=== PATIENT | female | born 1945 | race Caucasian/White ===

== ENCOUNTER → 2016-11-19 | Outpatient (CLI) | payer OTHER ==
[2016-10-25 21:44] VITALS: BP 106/65
== END ==
LOC: RAD 14:26
PROVIDERS: ATTEND Internal Medicine Cardiovascular Disease
DX: R55 Syncope and collapse (principal)
CPT/HCPCS: 93306

== ENCOUNTER → 2017-01-01 | Outpatient (CLI) | payer OTHER ==
[2016-10-25 21:44] VITALS: BP 106/65
[2017-01-01 12:45] LABS: BASOPHILS % (AUTO) 0.6 % (0.2-1.0); EOSINOPHILS # (AUTO) 0.2 x10^3/uL (0.0-0.2); EOSINOPHILS % (AUTO) 3.4 % (0.9-2.9); HEMATOCRIT 39.2 % (36.0-47.0); HEMOGLOBIN 13.5 g/dL (12.0-16.0); LYMPHOCYTES # (AUTO) 1.5 X10^3/uL (1.3-2.9); LYMPHOCYTES % (AUTO) 24.9 % (21.0-51.0); MEAN CORPUSCULAR HGB CONC 34.4 g/dL (33.0-35.0); MEAN CORPUSCULAR VOLUME 95.8 fL (80.0-100.0); MEAN PLATELET VOLUME 8.5 fL (7.4-11.0); MONOCYTES # (AUTO) 0.4 x10^3/uL (0.3-0.8); NEUTROPHILS # (AUTO) 3.9 x10^3/uL (2.2-4.8); NEUTROPHILS % (AUTO) 65.1 % (42.0-75.0); PLATELET COUNT 226 X10^3/uL (150.0-450.0); RED BLOOD COUNT 4.09 X10^6/uL (3.5-5.4); RED CELL DISTRIBUTION WIDTH 12.8 % (11.6-16.5)
[2017-01-01 13:11] LABS: ALANINE AMINOTRANSFERASE 25 Units/L (12-78); ALBUMIN 4.1 g/dL (3.4-5.0); ALKALINE PHOSPHATASE 137 Units/L (46-116); ASPARTATE AMINO TRANSFERASE 22 Units/L (15-37); BLOOD UREA NITROGEN 19 mg/dL (7-18); CALCIUM 9.3 mg/dL (8.5-10.1); CARBON DIOXIDE 26.6 mmol/L (21-32); CHLORIDE 105 mmol/L (98-107); CHOL/HDL RATIO 4.5 (0.0-5.0); CHOLESTEROL 206 mg/dL (0-200); CREATININE 0.85 mg/dL (0.55-1.02); FREE T4 (FREE THYROXINE) 0.93 ng/dL (0.76-1.46); GLUCOSE 97 mg/dL (65-99); HDL CHOLESTEROL 46 mg/dL (40-60); SODIUM 141 mmol/L (136-145); TRIGLYCERIDES 89 mg/dL (0-150); TSH (3RD GENERATION) 6.279 uIU/mL (0.358-3.74); eGFR BLACK RACES > 60 (>60); eGFR NON BLACK RACES > 60 (>60)
== END ==
LOC: LAB 11:50
PROVIDERS: ATTEND Nurse Practitioner Family
DX: Z09 Encounter for follow-up examination after completed treatment for conditions other than malignant neoplasm (principal); Z13.29 Encounter for screening for other suspected endocrine disorder; Z13.220 Encounter for screening for lipoid disorders; Z79.899 Other long term (current) drug therapy; E87.6 Hypokalemia
CPT/HCPCS: 36415; 80053; 80061; 84439; 84443; 85025

== ENCOUNTER → 2017-03-20 | Outpatient (CLI) | payer OTHER ==
[2016-10-25 21:44] VITALS: BP 106/65
--- NOTE | 2017-03-20 10:12 | US ---
History: Right upper quadrant pain Study: Ultrasound of the right upper quadrant of the abdomen Findings: The gallbladder is normal in size without wall thickening or stone or sludge. The common h epatic duct measures 5.8 millimeters diameter. There is fatty infiltration of the liver. The pancrea s is unremarkable. The right kidney is normal in size without hydronephrosis. There is no free fluid . Impression: No acute disease Reported By:
== END ==
LOC: RAD 09:11
PROVIDERS: ATTEND Nurse Practitioner Family
DX: K90.49 Malabsorption due to intolerance, not elsewhere classified (principal); R10.11 Right upper quadrant pain
CPT/HCPCS: 76705

== ENCOUNTER → 2017-03-25 | Outpatient (CLI) | payer OTHER ==
[2016-10-25 21:44] VITALS: BP 106/65
--- NOTE | 2017-03-25 13:07 | NM ---
HIDA SCAN WITH EJECTION FRACTION. HISTORY: Malabsorption and right upper quadrant pain Comparison: None Technique: Multiple scintigraphic images of the abdomen were obtained the intravenous administration of dose mCi of technetium labeled Choletec. Following distention of the gallbladder with radiotracer a slow intravenous infusion of dose microgr ams of Kinevac was performed. An estimated gallbladder ejection fraction was calculated. Findings: Homogeneous uptake of radiotracer is seen throughout the liver. The intrabiliary ductal system is o bserved normally. The common hepatic and common bile duct appear unremarkable with normal biliary-b owel transit. The gallbladder is observed to fill normally. A normal gallbladder ejection fraction of 5% (normal > 35%) is observed. IMPRESSION: 1. Normal hepatobiliary imaging scan. 2. Decreased gallbladder ejection fraction of 5%. This may represent chronic cholecystitis in the [facility] clinical setting. Reported By:
== END ==
LOC: RAD 09:15
PROVIDERS: ATTEND Nurse Practitioner Family
DX: K90.49 Malabsorption due to intolerance, not elsewhere classified (principal); R10.11 Right upper quadrant pain
CPT/HCPCS: 78227

== ENCOUNTER 2017-03-30 09:59 | Day surgery (SDC) | payer OTHER ==
[2017-03-30] MEDS ORDERED: ANCEF VIAL 1 GM ONE ×2 (10:39→11:40)
[2017-03-30] MEDS ORDERED: LR 1000 ML IV 1,000 ML IV ONE (10:39)
[2017-03-30] MEDS ORDERED: NS 50 ML IV + SPIKE MINIBAG* 50 ML IV ONE (10:39)
[2017-03-30 10:40] LABS: BASOPHILS % (AUTO) 0.4 % (0.2-1.0); EOSINOPHILS # (AUTO) 0.2 x10^3/uL (0.0-0.2); HEMATOCRIT 38.8 % (36.0-47.0); HEMOGLOBIN 13.5 g/dL (12.0-16.0); LYMPHOCYTES # (AUTO) 1.4 X10^3/uL (1.3-2.9); LYMPHOCYTES % (AUTO) 25.7 % (21.0-51.0); MEAN CORPUSCULAR HEMOGLOBIN 33.5 pg (27.0-34.0); MEAN CORPUSCULAR HGB CONC 34.7 g/dL (33.0-35.0); MEAN CORPUSCULAR VOLUME 96.5 fL (80.0-100.0); MEAN PLATELET VOLUME 8.2 fL (7.4-11.0); MONOCYTES # (AUTO) 0.4 x10^3/uL (0.3-0.8); MONOCYTES % (AUTO) 6.6 % (0.0-13.0); NEUTROPHILS # (AUTO) 3.5 x10^3/uL (2.2-4.8); NEUTROPHILS % (AUTO) 64.3 % (42.0-75.0); PLATELET COUNT 207 X10^3/uL (150.0-450.0); RED BLOOD COUNT 4.02 X10^6/uL (3.5-5.4); RED CELL DISTRIBUTION WIDTH 13.1 % (11.6-16.5); WHITE BLOOD COUNT 5.4 X10^3/uL (3.6-10.0)
[2017-03-30 10:42] LABS: BLOOD UREA NITROGEN 21 mg/dL (7-18); CHLORIDE 107 mmol/L (98-107); CREATININE 0.85 mg/dL (0.55-1.02); GLUCOSE 104 mg/dL (65-99); SODIUM 140 mmol/L (136-145); eGFR BLACK RACES > 60 (>60); eGFR NON BLACK RACES > 60 (>60)
[2017-03-30] MEDS ORDERED: FENTANYL INJ 250 mcg ONE (10:52)
[2017-03-30] MEDS ORDERED: XYLOCAINE-MPF 1% ONE (11:27)
[2017-03-30] MEDS ORDERED: MARCAINE 0.25% WITH EPI IJ ONE (11:27)
[2017-03-30] MEDS ORDERED: NS IRRIGATION 1000 ML 3,000 ML IR ONE (12:20)
[2017-03-30] MEDS ORDERED: BENADRYL INJ 50 MG VIAL IVP PRN (12:56)
[2017-03-30] MEDS ORDERED: DILAUDID INJ IVP PRN (12:56)
[2017-03-30] MEDS ORDERED: REGLAN INJ 10 MG VIAL IVP PRN (12:56)
[2017-03-30] MEDS ORDERED: ZOFRAN INJ 4 MG VIAL IVP PRN (12:56)
[2017-03-30] MEDS ORDERED: PHENERGAN INJ 25 MG IVP PRN (12:56)
[2017-03-30] MEDS ORDERED: DILAUDID INJ ONE (13:06)
[2017-03-30] MEDS ORDERED: TORADOL 30 MG VIAL ONE (13:49)
[2017-03-30] MEDS ORDERED: ZOFRAN INJ 4 MG VIAL ONE ×2 (14:06→15:49)
[2017-03-30] MEDS ORDERED: NS 1000 ML 1,000 ML ONE (14:19)
[2017-03-30] MEDS ORDERED: ROBINUL ONE (15:49)
[2017-03-30] MEDS ORDERED: NORCURON INJ 10 MG VIAL ONE (15:49)
[2017-03-30] MEDS ORDERED: SUPRANE IN ONE (15:49)
[2017-03-30] MEDS ORDERED: XYLOCAINE 2 % (PLAIN) ONE (15:49)
[2017-03-30] MEDS ORDERED: QUELICIN (OR ANECTINE) ONE (15:49)
[2017-03-30] MEDS ORDERED: NEOSTIGMINE INJ ONE (15:49)
[2017-03-30] MEDS ORDERED: DIPRIVAN VIAL ONE (15:49)
[2017-03-30] MEDS ORDERED: VERSED ONE (15:49)
[2017-03-30 16:04] VITALS: BP 127/68
== END 2017-03-30 15:57 | disposition home or self-care (01) | DRG 419 ==
LOC: SURG1 09:59
PROVIDERS: ATTEND Student in an Organized Health Care Education/Training Program
PROC: 0FT44ZZ Resection of Gallbladder, Percutaneous Endoscopic Approach (ICD-10-PCS; principal; 2017-03-30 11:30)
DX: K82.8 Other specified diseases of gallbladder (principal); K82.4 Cholesterolosis of gallbladder
CPT/HCPCS: 36415; 80048; 85025; A4216; A4222; S0020; J0330; J0690; J1170; J1885; J2001; J2250; J2405; J2710; J3010; J3490; J7120

== ENCOUNTER → 2017-06-18 | Outpatient (CLI) | payer OTHER ==
--- NOTE | 2017-06-18 14:18 | MG ---
HISTORY: Left breast carcinoma status post mastectomy Bilateral digital diagnostic mammography with CAD. Comparison: June 12, 2016 and June 12, 2015 FINDINGS: Bilateral CC and MLO projections of the right and left breast were obtained. Scattered fibroglandula r tissue is seen to be present without significant interval change. No suspicious architectural dist ortion, mass or clustered microcalcifications can be observed to suggest malignancy. No skin thicken ing or nipple retraction is appreciated. No pathological lymphadenopathy can be identified. Benign- appearing calcifications are noted within the right and left breast. There are stable postsurgical ch anges on the left. IMPRESSION: NO RADIOGRAPHIC EVIDENCE OF MALIGNANCY. ACR CATEGORY 2 - benign findings. FOLLOW-UP EXAM 1 YEAR. Diagnostic CAD was utilized and reviewed. * 0 (ZERO) - ASSESSMENT INCOMPLETE; ADDITIONAL IMAGING IS NEEDED. * 1/1 (ONE) - NEGATIVE. * 2/II (TWO) - BENIGN FINDINGS. * 3/III (THREE) - PROBABLY BENIGN FINDING; SHORT INTERVAL FOLLOW-UP SUGGESTED. * 4/IV (FOUR) - SUSPICIOUS ABNORMALITY; BIOPSY SHOULD BE CONSIDERED. * 5/V - HIGHLY SUSPICIOUS OF MALIGNANCY; BIOPSY SHOULD BE PERFORMED. A NEGATIVE X-RAY REPORT SHOULD NOT DELAY BIOPSY IF A DOMINANT OR CLINICALLY SUSPICIOUS MASS IS PRESENT; 4 TO 8 PERCENT OF CANCERS ARE NOT IDENTIFIED BY X-RAY. A NEGA TIVE REPORT MAY REINFORCE THE CLINICAL IMPRESSION. ADENOSIS AND DENSE BREASTS MAY OBSCURE AN UNDERLY ING NEOPLASM. Reported By:
== END | disposition home or self-care (01) ==
LOC: RAD 13:12
PROVIDERS: ATTEND Specialist
DX: Z85.3 Personal history of malignant neoplasm of breast (principal); Z90.12 Acquired absence of left breast and nipple
CPT/HCPCS: 77065

== ENCOUNTER 2018-01-07 07:21 | Day surgery (SDC) | payer OTHER ==
[2018-01-07] MEDS ORDERED: D5 LR 1000 ML 1,000 ML IV ONE (07:28)
[2018-01-07] MEDS ORDERED: DIPRIVAN VIAL 20 ML ONE (08:17)
[2018-01-07 09:22] VITALS: BP 110/70
== END 2018-01-07 09:20 | disposition home or self-care (01) ==
LOC: SURG1 07:21
PROVIDERS: ATTEND Internal Medicine Gastroenterology
PROC: 0DBP8ZX Excision of Rectum, Via Natural or Artificial Opening Endoscopic, Diagnostic (ICD-10-PCS; principal; 2018-01-07 07:30)
PROC: 0DBN8ZX Excision of Sigmoid Colon, Via Natural or Artificial Opening Endoscopic, Diagnostic (ICD-10-PCS; principal; 2018-01-07 07:30)
PROC: 0DJD8ZZ Inspection of Lower Intestinal Tract, Via Natural or Artificial Opening Endoscopic (ICD-10-PCS; principal; 2018-01-07 07:30)
PROC: 0DBE8ZX Excision of Large Intestine, Via Natural or Artificial Opening Endoscopic, Diagnostic (ICD-10-PCS; principal; 2018-01-07 07:30)
PROC: 0DBL8ZX Excision of Transverse Colon, Via Natural or Artificial Opening Endoscopic, Diagnostic (ICD-10-PCS; principal; 2018-01-07 07:30)
DX: Z12.11 Encounter for screening for malignant neoplasm of colon (principal); R19.4 Change in bowel habit; Z86.010 Personal history of colon polyps; K64.0 First degree hemorrhoids; K57.30 Diverticulosis of large intestine without perforation or abscess without bleeding; K63.5 Polyp of colon; D12.3 Benign neoplasm of transverse colon; D12.8 Benign neoplasm of rectum
CPT/HCPCS: 99100; A4217; J3490; J7120

== ENCOUNTER 2020-10-05 17:11 | Inpatient (IN) ==
--- NOTE | 2020-10-05 17:55 | DR.DIZZY ---
HPI Time seen Time Seen by Provider: 10/05/20 17:55 PCP Primary Care Physician: Mark HPI Comment HPI Comment: PATIENT IS 74YR OLD FEMALE IN ER VIA EMS WITH INCREASING DENERALIZED WEAKNESS TIMES ONE WEEK. WORSE TODAY. NAUSEA AND VOMITING WITH ABDOMINAL DISCOMFORT ON AND OFF REPORTED. Complaint Chief Complaint Doctor Comments: INCREASING GENERALIZED WEAKNESS TIMES ONE WEEK. Chief Complaint:: Weakness COVID-19 Coronavirus risk:travel/contact w/high risk person: No Has patient experienced Coronavirus symptoms: Yes Coronavirus symptoms experienced: Fever Source History Provided: Patient and EMS Mode of Arrival Mode of Arrival: EMS Timing Onset of Chief Complaint: 09/28/20 Came on: Suddenly Duration Duration: Constant Duration: Days Location of Weakness Weakness Location: Generalized Context Onset: At rest History of: None Stroke Symptoms: Dizziness Severity Severity: Abnormal activity level Modifying factors Worsens: Other (EXERTION.) Associated signs and symptoms Associated Signs and Symptoms: Weak, Nausea and Vomiting PMH PMH Past Medical History: Yes Past Medical History: Hypertension Past Medical History Comment: Left breast CA Past Surgical History: Yes Surgical History: Mastectomy Family History History of Family Medical Conditions: Yes Family Medical History: Hypertension Social History Does patient currently use any type of tobacco product: No Have you used tobacco products in the last 12 months: No Type of Tobacco Use: None Does any household member use tobacco: No Alcohol Use: None Do you use any recreational Drugs:: No Lives With: Spouse Lives Where: Home Travel Risk Coronavirus risk:travel/contact w/high risk person: No Has patient experienced Coronavirus symptoms: Yes Coronavirus symptoms experienced: Fever Infectious screening In the last 2 months have you had wt loss of >10#?: NO Have you had fever, night sweats or hemotysis?: No Have you traveled outside the country in the last 6 months?: No Isolation: Standard ROS Review of Systems Constitutional: See HPI, Weakness and Fatigue; negative Fever Eyes: No Symptoms Reported ENTM: No Symptoms Reported and See HPI; negative Nose Discharge and Nose Congestion Respiratoy: No Symptoms Reported and See HPI; negative Moist Cough, Short of Breath and Wheezing Cardiovascular: See HPI and Palpitations Gastrointestinal/Abdominal: See HPI, Abdominal Pain and Nausea; negative D iarrhea and Vomiting Genitourinary: No Symptoms Reported and See HPI; negative Dysuria Neurological: See HPI, Weakness and Dizziness Musculoskeletal: No Symptoms Reported and See HPI Integumentary: No Symptoms Reported and See HPI; negative Change in Color, Rash and Juandice Hematologic/Lymphatic: See HPI and Easy Bruising Endocrine: No Symptoms Reported and See HPI; negative Increased Thirst and Increased Urine Psychiatric: No Symptoms Reported and See HPI All Other Systems: Reviewed and Negative PE Vital Signs Vitals: Temperature 98.1 F Pulse Rate [Bilateral Radial] 95 Pulse Rate 107 Respiratory Rate 20 Blood Pressure [Right Arm] 130/68 Blood Pressure [Right Calf] 111/60 Blood Pressure [Standing] 128/83 Blood Pressure [Sitting] 140/90 Blood Pressure [Lying] 118/75 Blood Pressure 137/68 O2 Sat by Pulse Oximetry 93 General Limitations: No Limitations General Appearance: Alert and In Distress Head Head Exam: Normal Inspection and Atraumatic Eyes Eye exam: Normal Appearance and PERRL; negative Scleral Icterus and Conjunctival Injection Pupils: Regular, Round: Bilateral and Reactive: Bilateral Sclera/Conjunctival: Normal Inspection: Bilateral ENT ENT Exam: Normal Exam, Normal Oropharynx, Normal External Ear Exam and TM's Normal Bilaterally Neck Neck Exam: Normal Inspection, Trachea Midline and Tenderness; negative Lymphadenopathy Chest Chest Inspection: Normal Inspection and Symmetric Chest Wall Rise; negative Tenderness Respiratory Respiratory Exam: Normal Lung Sounds Bilat; negative Accessory Muscle Use, Chest Wall Tenderness and Respiratory Distress Respiratory Exam: Bilateral: Rhonchi and Lower: Rhonchi Cardiovascular Cardiovascular Exam: Tachycardia and Normal Heart Sounds; negative Systolic Murmur and Diastolic Murmur Abdominal Exam Abdominal Exam: Normal Inspection, Normal Bowel Sounds and Soft; negative Tenderness Rectal Rectal Exam: Deferred Extremeties Extremities Exam: Normal Inspection and Normal Capillary Refill; negative Tende rness and Calf Tenderness Back Back Exam: Normal Inspection; negative (R) CVA Tenderness and (L) CVA Tenderness Neurologic Neurological Exam: Alert and Oriented X3; negative Motor Sensory Deficit Cranial Nerve Exam: EOM Function (II, III, IV, ): Normal, Facial Sensation (V): Normal, Gag reflex (XI): Normal and Tongue Deviation: Normal Motor Strength - LUE: 5/5 Motor Strength - RUE: 5/5 Motor Strength - LLE: 5/5 Motor Strength - RLE: 5/5 Upper Motor Neuron Exam: Babinski Sign: Normal Psychiatric Psychiatric Exam: Normal Affect and Normal Mood Skin Skin Exam: Dry MDM Differential Diagnosis Differential Diagnosis: Dehydration, Dysrhythmia, Electrolyte disorder, Hypoglycemia and Myocardial infarction Differential Diagnosis Comment: PNEUMONIA, UTI COURSE Treatment Treatment: SEE ORDERS. NS 1L IV BOLUS. Consultation Consultation Comments: DISCUSSED PATIENT WITH DR. JERNIGAN, HE WILL ADMIT PATIENT. Education/Counseling Education/Counseling: Patient Educated On: Diagnosis and Needs for Follow Up ROR Labs Reviewed Laboratory Results Reviewed?: Yes Result Diagrams: 10/15/20 06:12 10/15/20 11:30 Laboratory: 10/07/20 11:34 Blood Blood Culture - Final 10/07/20 11:26 Blood Blood Culture - Final 10/07/20 12:50 Stool Stool Culture - Final 10/07/20 12:50 Stool - Final WBC 2.8 X10^3/uL (3.6-10.0) L 10/08/20 05:26 RBC 2.85 X10^6/uL (3.5-5.4) L 10/08/20 05:26 Hgb 10.3 g/dL (12.0-16.0) L 10/08/20 05:26 Hct 28.7 % (36.0-47.0) L 10/08/20 05:26 MCV 100.6 fL (80.0-100.0) H 10/08/20 05:26 MCH 36.1 pg (27.0-34.0) H 10/08/20 05:26 MCHC 35.9 g/dL (33.0-35.0) H 10/08/20 05:26 RDW 19.3 % (11.6-16.5) H 10/08/20 05:26 Plt Count 139 X10^3/uL (150.0-450.0) L 10/08/20 05:26 Plt Count Comment Decreased (ADEQUATE) A 10/08/20 05:26 MPV 8.8 fL (7.4-11.0) 10/08/20 05:26 Neut % (Auto) 89.2 % (42.0-75.0) H 10/08/20 05:26 Lymph % (Auto) 8.2 % (21.0-51.0) L 10/08/20 05:26 [place] % (Auto) 1.5 % (0.0-13.0) 10/08/20 05:26 Eos % (Auto) 0.2 % (0.9-2.9) L 10/08/20 05:26 Baso % (Auto) 0.9 % (0.2-1.0) 10/08/20 05:26 Neut # (Auto) 2.5 x10^3/uL (2.2-4.8) 10/08/20 05:26 Lymph # (Auto) 0.2 X10^3/uL (1.3-2.9) L 10/08/20 05:26 [place] # (Auto) 0 x10^3/uL (0.3-0.8) L 10/08/20 05:26 Eos # (Auto) 0.0 x10^3/uL (0.0-0.2) 10/08/20 05:26 Baso # (Auto) 0.0 X10^3/uL (0.0-0.1) 10/08/20 05:26 Absolute Nucleated RBC 0.3 /100WBC 10/08/20 05:26 Total Counted 100 10/08/20 05:26 Neutrophils % (Manual) 87 % (39-76) H 10/08/20 05:26 Band Neutrophils % 1 % (0-10) 10/06/20 05:20 Lymphocytes % (Manual) 11 % (13-43) L 10/08/20 05:26 Monocytes % (Manual) 1 % (4-9) L 10/08/20 05:26 Eosinophils % (Manual) 1 % (0-6) 10/08/20 05:26 Plt Morphology Comment Normal (NORMAL) 10/08/20 05:26 RBC Morphology Normal (NORMAL) 10/08/20 05:26 Sodium 137 mmol/L (136-145) 10/08/20 05:26 Corrected Sodium 138 mmol/L (136-145) 10/08/20 05:26 Potassium 2.9 mmol/L (3.5-5.1) L* 10/08/20 05:26 Chloride 105 mmol/L (98-107) 10/08/20 05:26 Carbon Dioxide 21.3 mmol/L (21-32) 10/08/20 05:26 BUN 6 mg/dL (7-18) L 10/08/20 05:26 Creatinine 0.68 mg/dL (0.55-1.02) 10/08/20 05:26 Est GFR (MDRD) Af Amer > 60 (>60) 10/08/20 05:26 Est GFR (MDRD) Non-Af > 60 (>60) 10/08/20 05:26 Glucose 142 mg/dL (65-99) H 10/08/20 05:26 Calcium 6.7 mg/dL (8.5-10.1) L 10/08/20 05:26 Corrected Calcium 8.3 mg/dL (8.5-10.1) L 10/08/20 05:26 Magnesium 1.7 mg/dL (1.7-2.9) 10/08/20 05:26 Total Bilirubin 0.50 mg/dL (0.2-1.0) 10/08/20 05:26 AST 22 Units/L (15-37) 10/08/20 05:26 ALT 20 Units/L (12-78) 10/08/20 05:26 Alkaline Phosphatase 106 Units/L (46-116) 10/08/20 05:26 Creatine Kinase 41 Units/L (26-192) 10/05/20 18:34 CK-MB (CK-2) < 1.0 ng/mL (0-4.0) 10/05/20 18:34 CK/CKMB % Calc 2.4 % (<4) 10/05/20 18:34 Troponin I < 0.02 ng/mL (0-1.5) 10/05/20 18:34 Total Protein 5.4 g/dL (6.4-8.2) L 10/08/20 05:26 Albumin 2.0 g/dL (3.4-5.0) L 10/08/20 05:26 Globulin 3.4 g/dL (2.5-4.5) 10/08/20 05:26 Albumin/Globulin Ratio 0.6 Ratio (1.1-2.1) L 10/08/20 05:26 Amylase 76 Units/L (25-115) 10/06/20 05:20 Lipase 180 Units/L (73-393) 10/05/20 18:34 Specimen Type Clean catch urine 10/07/20 05:35 Urine Color Yellow (YELLOW) 10/07/20 05:35 Urine Appearance Clear (CLEAR) 10/07/20 05:35 Urine pH 5.0 (5.0 - 8.0) 10/07/20 05:35 Ur Specific [place] 1.015 (1.000-1.030) 10/07/20 05:35 Urine Protein 1+ (NEGATIVE) 10/07/20 05:35 Urine Glucose (UA) Negative (NEGATIVE) 10/07/20 05:35 Urine Ketones 3+ (NEGATIVE) 10/07/20 05:35 Urine Occult Blood 1+ (NEGATIVE) 10/07/20 05:35 Urine Nitrite Negative (NEGATIVE) 10/07/20 05:35 Urine Bilirubin Negative (NEGATIVE) 10/07/20 05:35 Urine Urobilinogen Normal (NORMAL) 10/07/20 05:35 Ur Leukocyte Esterase Negative (NEGATIVE) 10/07/20 05:35 Urine RBC 0-2 /HPF (0-3) 10/07/20 05:35 Urine WBC 0-2 /HPF (0-5) 10/07/20 05:35 Ur Squamous Epith Cells Rare /HPF (NEGATIVE) 10/07/20 05:35 Urine Bacteria Negative /HPF (NEGATIVE) 10/07/20 05:35 Ur Culture Indicated? No/not indicated 10/07/20 05:35 Stool for White Cells Negative (NEGATIVE) 10/07/20 12:50 Stl C. diff Tox B Gene Negative (NEGATIVE) 10/07/20 12:50 Stl C. diff [id number] Negative (NEGATIVE) 10/07/20 12:50 SARS-CoV-2 (PCR) Negative (NEGATIVE) 10/05/20 23:23 Influenza Type A (PCR) Negative (NEGATIVE) 10/05/20 23:23 Influenza Type B (PCR) Negative (NEGATIVE) 10/05/20 23:23 RSV (PCR) Negative (NEGATIVE) 10/05/20 23:23 XRAY XRAY Interpreted by: Radiologist (REPORT NOTED.) EKG Rate: 100 [place]: Normal Rhythm: NSR Block: None Hypertrophy: None ST: Old, Ant, Infarct and Nonsp Opioid Opioid Risk Tool Age (Marvin box if 16-45): No History of Preadolescent Sexual Abuse: No Total: 0 Total Score Risk Category: Low Risk Copyright: [facility] predicting aberrant behaviors Diagnosis Discharge Problem: Weakness, Acute dehydration Abdominal pain Qualifiers: Abdominal location: generalized Qualified Code(s): R10.84 - Generalized abdominal pain Vomiting Qualifiers: Vomiting type: unspecified Vomiting Intractability: non-intractable Nausea presence: with nausea Qualified Code(s): R11.2 - Nausea with vomiting, unspecified Instructions Instructions: Fall Prevention in the Home, Adult, Xysg-oj-Cuaj Hypokalemia Dehydration, Adult, Npzl-dy-Cwfb Home Oxygen Use, Adult Hand Washing, Mess-ol-Vzpy Weakness, Mvjl-xt-Fvjp How to Use a Nebulizer, Adult Diarrhea, Adult, Ltwi-et-Pifb Forms: Excuse From Work or School Precautions for COVID19 Patient Portal Social Distancing
[2020-10-05] MEDS ORDERED: NS 1000 ML 1,000 ML IV ONE (18:10)
[2020-10-05] MEDS ORDERED: NS 1000 ML 1,000 ML ONE (18:15)
--- NOTE | 2020-10-05 18:26 | RAD ---
HISTORYWeaknessSTUDYCHEST, 1 VIEWCOMPARISONNone.FINDINGSThe trachea is midline. The cardiac silhouette is at the upper limits of normal in size. There is a right-sided Loorgz-S-Jgjd with tip projecting over the distal SVC. Mild interstitial prominence is noted throughout both lungs without dense consolidation, pleural effusion or pneumothorax. Surgical clips project over the left chest and axillary region. The bony thorax is grossly unremarkable.IMPRESSIONMild nonspecific interstitial changes of the lungs without focal consolidation or pleural effusion.Electronically signed by: ABDULKADIR KIDD (Oct 05, 2020 18:25:07)
[2020-10-05 18:51] LABS: BASOPHILS % (AUTO) 0.7 % (0.2-1.0); EOSINOPHILS % (AUTO) 0.2 % (0.9-2.9); HEMOGLOBIN 11.1 g/dL (12.0-16.0); LYMPHOCYTES # (AUTO) 0.2 X10^3/uL (1.3-2.9); MEAN CORPUSCULAR HEMOGLOBIN 35.5 pg (27.0-34.0); MEAN CORPUSCULAR HGB CONC 34.7 g/dL (33.0-35.0); MEAN CORPUSCULAR VOLUME 102.5 fL (80.0-100.0); MONOCYTES # (AUTO) 0 x10^3/uL (0.3-0.8); MONOCYTES % (AUTO) 0.6 % (0.0-13.0); NEUTROPHILS # (AUTO) 3.1 x10^3/uL (2.2-4.8); NEUTROPHILS % (AUTO) 91.5 % (42.0-75.0); PLATELET COUNT 117 X10^3/uL (150.0-450.0); RED BLOOD COUNT 3.12 X10^6/uL (3.5-5.4); RED CELL DISTRIBUTION WIDTH 19.7 % (11.6-16.5); WHITE BLOOD COUNT 3.4 X10^3/uL (3.6-10.0)
[2020-10-05 18:55] LABS: AMYLASE 69 Units/L (25-115); LIPASE 180 Units/L (73-393)
[2020-10-05 19:43] LABS: PLATELET MORPHOLOGY COMMENT NORMAL (NORMAL)
[2020-10-05 19:58] LABS: BLOOD UREA NITROGEN 15 mg/dL (7-18); CALCIUM 7.5 mg/dL (8.5-10.1); CARBON DIOXIDE 24.1 mmol/L (21-32); CHLORIDE 105 mmol/L (98-107); CREATININE 0.57 mg/dL (0.55-1.02); SODIUM 139 mmol/L (136-145); TROPONIN I < 0.02 ng/mL (0-1.5); eGFR NON BLACK RACES > 60 (>60)
[2020-10-05 20:02] LABS: ALANINE AMINOTRANSFERASE 18 Units/L (12-78); ALBUMIN 2.3 g/dL (3.4-5.0); ALKALINE PHOSPHATASE 109 Units/L (46-116); ASPARTATE AMINO TRANSFERASE 27 Units/L (15-37); CKMB % 2.4 % (<4); COR CA(FOR HYPOALB) 8.9 mg/dL (8.5-10.1); CREATINE KINASE 41 Units/L (26-192); CREATINE KINASE MB < 1.0 ng/mL (0-4.0); TOTAL PROTEIN 5.2 g/dL (6.4-8.2)
[2020-10-05] MEDS ORDERED: ZOFRAN INJ 4 MG VIAL IVP PRN (23:07)
[2020-10-05] MEDS ORDERED: MORPHINE SULFATE INJ 2 MG INJ IVP PRN (23:07)
[2020-10-05] MEDS ORDERED: PEPCID 20 MG IV PREMIX* 20 MG/50 ML BAG IV PRN (23:07)
[2020-10-06] MEDS ORDERED: NS 1000 ML 1,000 ML ONE ×2 (01:11→11:36)
[2020-10-06] MEDS: NS 1000 ML 1,000 ML IV SCH ×2 (01:36→11:36)
[2020-10-06 06:32] LABS: BASOPHILS % (AUTO) 0.4 % (0.2-1.0); EOSINOPHILS % (AUTO) 0.2 % (0.9-2.9); HEMOGLOBIN 10.8 g/dL (12.0-16.0); LYMPHOCYTES # (AUTO) 0.3 X10^3/uL (1.3-2.9); LYMPHOCYTES % (AUTO) 7.1 % (21.0-51.0); MEAN CORPUSCULAR HEMOGLOBIN 35.8 pg (27.0-34.0); MEAN CORPUSCULAR HGB CONC 34.9 g/dL (33.0-35.0); MEAN CORPUSCULAR VOLUME 102.4 fL (80.0-100.0); MEAN PLATELET VOLUME 8.5 fL (7.4-11.0); MONOCYTES # (AUTO) 0 x10^3/uL (0.3-0.8); MONOCYTES % (AUTO) 1.1 % (0.0-13.0); NEUTROPHILS # (AUTO) 3.5 x10^3/uL (2.2-4.8); NEUTROPHILS % (AUTO) 91.2 % (42.0-75.0); PLATELET COUNT 128 X10^3/uL (150.0-450.0); RED BLOOD COUNT 3.03 X10^6/uL (3.5-5.4); RED CELL DISTRIBUTION WIDTH 19.7 % (11.6-16.5); WHITE BLOOD COUNT 3.9 X10^3/uL (3.6-10.0)
[2020-10-06 06:41] LABS: BLOOD UREA NITROGEN 11 mg/dL (7-18); CALCIUM 7.2 mg/dL (8.5-10.1); CHLORIDE 103 mmol/L (98-107); CREATININE 0.64 mg/dL (0.55-1.02); SODIUM 137 mmol/L (136-145); eGFR NON BLACK RACES > 60 (>60)
[2020-10-06 07:23] LABS: BAND NEUTROPHILS % 1 % (0-10)
[2020-10-06 07:24] LABS: PLATELET MORPHOLOGY COMMENT NORMAL (NORMAL)
[2020-10-06] MEDS ORDERED: POTASSIUM CHL 40 MEQ/NS 0.45% 500 ML IV ONE (09:24)
--- NOTE | 2020-10-06 11:40 | DR.H&P ---
H&P History & Physical for Day of: H&P Date: 10/06/20 Chief Complaint Chief Complaint: weakness, diarrhea Allergies Allergies Allergy/AdvReac Type Severity Reaction Status Date / Time codeine Allergy Verified 06/05/20 09:23 History of Present Illness History of Present Illness: Ms. Lozada is a 74y/o female with a PMH of breast cancer s/p left sided mastectomy with recent metastasis to cervical region. Patient had a cervical fracture and is currently wearing a C-collar. She was started on Ibrance 2 months ago and since then she has been weak, having diarrhea and sleeping most of the day. She was seen in the Ed on 10/01 for similar complaints and was hydrated and sent home. Patient continues to be weak with poor appetite , decreased energy and diarrhea 3-4 times a day. Patient denies fever or chills, no cough or SOB. Denies abdominal pain. Denies blood in stool. Labs: - WBC 3.9 Hgb 10.8 Plt 128 K:3.1 BUN/Cr: 11/0.64 CXR: mild interstitial changes, no consolidation/infiltrate noted She was started on IVF, Zofran, Pepcid and pain control. Plan: will continue hydration with NS, replace potassium. Check stool studies for C diff, stool culture. Resume home medications. Check Mag. Check urinalysis. Start clear liquid diet and advance as tolerated. Monitor AM labs. Patient's symptoms likely 2/2 to chemo medication. Past Medical History Past Medical History: Hypertension and Hyperthyroidism Additional Medical History: Breast cancer Past Surgical History Surgical History: Mastectomy Family History Family Medical History: Hypertension Social History Does patient currently use any type of tobacco product: No Have you used tobacco products in the last 12 months: No Type of Tobacco Use: None Does any household member use tobacco: No Alcohol Use: None Prescription drug monitoring program results: PDMP reviewed and no concerns identified Medications Home Medications: codeine Allergy (Verified 06/05/20 09:23) Labs Result Diagrams: 10/06/20 05:20 10/06/20 05:20 Labs: Laboratory WBC 3.9 X10^3/uL (3.6-10.0) 10/06/20 05:20 RBC 3.03 X10^6/uL (3.5-5.4) L 10/06/20 05:20 Hgb 10.8 g/dL (12.0-16.0) L 10/06/20 05:20 Hct 31.0 % (36.0-47.0) L 10/06/20 05:20 MCV 102.4 fL (80.0-100.0) H 10/06/20 05:20 MCH 35.8 pg (27.0-34.0) H 10/06/20 05:20 MCHC 34.9 g/dL (33.0-35.0) 10/06/20 05:20 RDW 19.7 % (11.6-16.5) H 10/06/20 05:20 Plt Count 128 X10^3/uL (150.0-450.0) L 10/06/20 05:20 Plt Count Comment Decreased (ADEQUATE) A 10/06/20 05:20 MPV 8.5 fL (7.4-11.0) 10/06/20 05:20 Neut % (Auto) 91.2 % (42.0-75.0) H 10/06/20 05:20 Lymph % (Auto) 7.1 % (21.0-51.0) L 10/06/20 05:20 [place] % (Auto) 1.1 % (0.0-13.0) 10/06/20 05:20 Eos % (Auto) 0.2 % (0.9-2.9) L 10/06/20 05:20 Baso % (Auto) 0.4 % (0.2-1.0) 10/06/20 05:20 Neut # (Auto) 3.5 x10^3/uL (2.2-4.8) 10/06/20 05:20 Lymph # (Auto) 0.3 X10^3/uL (1.3-2.9) L 10/06/20 05:20 [place] # (Auto) 0 x10^3/uL (0.3-0.8) L 10/06/20 05:20 Eos # (Auto) 0.0 x10^3/uL (0.0-0.2) 10/06/20 05:20 Baso # (Auto) 0.0 X10^3/uL (0.0-0.1) 10/06/20 05:20 Absolute Nucleated RBC 0.1 /100WBC 10/06/20 05:20 Total Counted 100 10/06/20 05:20 Neutrophils % (Manual) 89 % (39-76) H 10/06/20 05:20 Band Neutrophils % 1 % (0-10) 10/06/20 05:20 Lymphocytes % (Manual) 8 % (13-43) L 10/06/20 05:20 Monocytes % (Manual) 2 % (4-9) L 10/06/20 05:20 Plt Morphology Comment Normal (NORMAL) 10/06/20 05:20 RBC Morphology Normal (NORMAL) 10/06/20 05:20 Sodium 137 mmol/L (136-145) 10/06/20 05:20 Corrected Sodium TNP 10/06/20 05:20 Potassium 3.1 mmol/L (3.5-5.1) L 10/06/20 05:20 Chloride 103 mmol/L (98-107) 10/06/20 05:20 Carbon Dioxide 24.0 mmol/L (21-32) 10/06/20 05:20 BUN 11 mg/dL (7-18) 10/06/20 05:20 Creatinine 0.64 mg/dL (0.55-1.02) 10/06/20 05:20 Est GFR (MDRD) Af Amer > 60 (>60) 10/06/20 05:20 Est GFR (MDRD) Non-Af > 60 (>60) 10/06/20 05:20 Glucose 97 mg/dL (65-99) 10/06/20 05:20 Calcium 7.2 mg/dL (8.5-10.1) L 10/06/20 05:20 Corrected Calcium 8.9 mg/dL (8.5-10.1) 10/05/20 18:34 Total Bilirubin 0.60 mg/dL (0.2-1.0) 10/05/20 18:34 AST 27 Units/L (15-37) 10/05/20 18:34 ALT 18 Units/L (12-78) 10/05/20 18:34 Alkaline Phosphatase 109 Units/L (46-116) 10/05/20 18:34 Creatine Kinase 41 Units/L (26-192) 10/05/20 18:34 CK-MB (CK-2) < 1.0 ng/mL (0-4.0) 10/05/20 18:34 CK/CKMB % Calc 2.4 % (<4) 10/05/20 18:34 Troponin I < 0.02 ng/mL (0-1.5) 10/05/20 18:34 Total Protein 5.2 g/dL (6.4-8.2) L 10/05/20 18:34 Albumin 2.3 g/dL (3.4-5.0) L 10/05/20 18:34 Globulin 2.9 g/dL (2.5-4.5) 10/05/20 18:34 Albumin/Globulin Ratio 0.8 Ratio (1.1-2.1) L 10/05/20 18:34 Amylase 76 Units/L (25-115) 10/06/20 05:20 Lipase 180 Units/L (73-393) 10/05/20 18:34 SARS-CoV-2 (PCR) Negative (NEGATIVE) 10/05/20 23:23 Influenza Type A (PCR) Negative (NEGATIVE) 10/05/20 23:23 Influenza Type B (PCR) Negative (NEGATIVE) 10/05/20 23:23 RSV (PCR) Negative (NEGATIVE) 10/05/20 23:23 Review of Systems Constitutional: Weakness and Malaise Eyes: No Symptoms Reported ENT: No Symptoms Reported Respiratory: No Symptoms Reported Cardiovascular: No Symptoms Reported Gastrointestinal: Nausea and Diarrhea Genitourinary: No Symptoms Reported Musculoskeletal: Neck Pain Skin: No Symptoms Reported Neurological: No Symptoms Reported Physical Exam Vital Signs: Temperature 98.0 F Pulse Rate [Bilateral Radial] 102 Pulse Rate 107 Respiratory Rate 22 Blood Pressure [Right Arm] 136/69 Blood Pressure [Right Calf] 111/60 Blood Pressure [Standing] 128/83 Blood Pressure [Sitting] 140/90 Blood Pressure [Lying] 118/75 Blood Pressure 137/68 O2 Sat by Pulse Oximetry 94 Oriented: Normal Eyes: Normal Ear: Normal Respiratory: Diminished Throughout Cardiovascular: Normal Auscultation: Bowel Sounds: Normal Palpation: Normal Tenderness: Normal Skin: Decreased [place]urgur Musculoskeletal: Normal Psychiatric: Normal Mood Description: Calm Affect: Normal Speech Pattern: Clear and Appropriate Assessment/Plan (1) Pathologic cervical vertebral fracture: Qualifiers: Encounter type: initial encounter Qualified Code(s): M84.48XA - Pathological fracture, other site, initial encounter for fracture Status: Acute (2) Weakness: Status: Acute (3) Breast cancer metastasized to bone: Qualifiers: Laterality: unspecified laterality Qualified Code(s): C50.919 - Malignant neoplasm of unspecified site of unspecified female breast; C79.51 - Secondary malignant neoplasm of bone Status: Acute (4) GERD (gastroesophageal reflux disease): Qualifiers: Esophagitis presence: without esophagitis Qualified Code(s): K21.9 - Gastro-esophageal reflux disease without esophagitis Status: Chronic (5) Dehydration: Status: Acute (6) Hypokalemia: Status: Acute (7) Diarrhea: Qualifiers: Diarrhea type: unspecified type Qualified Code(s): R19.7 - Diarrhea, unspecified Status: Acute Review H&P Reviewed: Yes Patient was examined?: Yes
[2020-10-06] MEDS: ULTRAM PO SCH (14:30)
[2020-10-06] MEDS: IMODIUM CAP 2 MG PO PRN (18:20)
[2020-10-07] MEDS: KLONOPIN TAB 0.5 MG PO SCH ×2 (00:15→21:42)
[2020-10-07] MEDS: ULTRAM PO SCH ×4 (00:16→21:46)
[2020-10-07 06:09] LABS: BILIRUBIN,URINE NEGATIVE (NEGATIVE); BLOOD/HEMOGLOBIN,URINE 1+ (NEGATIVE); GLUCOSE, URINE NEGATIVE (NEGATIVE); KETONES,URINE 3+ (NEGATIVE); LEUKOCYTE ESTERASE ,URINE NEGATIVE (NEGATIVE); NITRITES,URINE NEGATIVE (NEGATIVE); PROTEIN,URINE 1+ (NEGATIVE); UROBILINOGEN,URINE NORMAL (NORMAL)
[2020-10-07 06:21] LABS: APPEARANCE,URINE CLEAR (CLEAR); BACTERIA,URINE NEGATIVE /HPF (NEGATIVE); COLOR,URINE YELLOW (YELLOW); RBC,URINE 0-2 /HPF (0-3); SQUAMOUS EPITHELIAL CELL,UR RARE /HPF (NEGATIVE)
[2020-10-07 06:51] LABS: BASOPHILS % (AUTO) 0.8 % (0.2-1.0); EOSINOPHILS % (AUTO) 0.3 % (0.9-2.9); HEMATOCRIT 30.9 % (36.0-47.0); HEMOGLOBIN 10.8 g/dL (12.0-16.0); LYMPHOCYTES # (AUTO) 0.2 X10^3/uL (1.3-2.9); LYMPHOCYTES % (AUTO) 7.8 % (21.0-51.0); MEAN CORPUSCULAR HEMOGLOBIN 35.9 pg (27.0-34.0); MEAN CORPUSCULAR HGB CONC 35.1 g/dL (33.0-35.0); MEAN CORPUSCULAR VOLUME 102.3 fL (80.0-100.0); MEAN PLATELET VOLUME 8.9 fL (7.4-11.0); MONOCYTES # (AUTO) 0 x10^3/uL (0.3-0.8); MONOCYTES % (AUTO) 1.4 % (0.0-13.0); NEUTROPHILS # (AUTO) 2.8 x10^3/uL (2.2-4.8); NEUTROPHILS % (AUTO) 89.7 % (42.0-75.0); PLATELET COUNT 141 X10^3/uL (150.0-450.0); RED BLOOD COUNT 3.02 X10^6/uL (3.5-5.4); RED CELL DISTRIBUTION WIDTH 19.5 % (11.6-16.5); WHITE BLOOD COUNT 3.1 X10^3/uL (3.6-10.0)
[2020-10-07 06:59] LABS: ALANINE AMINOTRANSFERASE 21 Units/L (12-78); ALBUMIN 2.2 g/dL (3.4-5.0); ALKALINE PHOSPHATASE 108 Units/L (46-116); ASPARTATE AMINO TRANSFERASE 24 Units/L (15-37); BLOOD UREA NITROGEN 8 mg/dL (7-18); CALCIUM 7.4 mg/dL (8.5-10.1); CARBON DIOXIDE 23.2 mmol/L (21-32); CHLORIDE 103 mmol/L (98-107); COR CA(FOR HYPOALB) 8.8 mg/dL (8.5-10.1); CREATININE 0.64 mg/dL (0.55-1.02); SODIUM 137 mmol/L (136-145); TOTAL PROTEIN 5.7 g/dL (6.4-8.2); eGFR NON BLACK RACES > 60 (>60)
[2020-10-07] MEDS: SYNTHROID 75 mcg TAB PO SCH ×2 (08:51→17:45)
--- NOTE | 2020-10-07 11:06 | PCM.PROG ---
Progress Note Progress Note for Day of Date of Exam: 10/07/20 Subjective Subjective: Patient seen at bedside, no overnight events. Patient states she feels slightly better today. Her diarrhea has improved. She was able to tolerate clear liquid diet. She is still drowsy this morning and resting in bed. We were not able to collect a stool sample yesterday without urine contamination. Labs: WBC 3.1 Hgb 10.8 K: 3.1 Glu 100 UA: (-) for infection Plan: patient noted to have low-grade fever this AM, 99.9 with slight tachycardia. Will repeat CXR, get blood cultures and start Cefepime for empiric tx. Will change IVF to NS + KCl. Follow stool studies when collected. Adjust diet as tolerated. Monitor AM labs. Patient's Ibrance has been on hold since admission, Last dose was taken on 10/04/20. It is likely contributing to patient recurrent episodes of diarrhea, dehydration and weakness. Discussed with patient's that it's better to discuss it with patient's oncologist tomorrow before resuming it. He agrees and verbalized understanding. Past Medical Family Social History Past Med/Fam/Surg Hx: No changes since H&P Allergies: Allergies codeine Allergy (Verified 06/05/20 09:23) Review of Systems ROS: No change since H&P Vital Signs and I&O's Vital Signs: Temperature 99.9 F Pulse Rate [Bilateral Radial] 107 Pulse Rate 107 Respiratory Rate 20 Blood Pressure [Right Arm] 139/62 Blood Pressure [Right Calf] 111/60 Blood Pressure [Standing] 128/83 Blood Pressure [Sitting] 140/90 Blood Pressure [Lying] 118/75 Blood Pressure 137/68 O2 Sat by Pulse Oximetry 94 Intake and Output: Intake & Output 10/04/20 10/05/20 10/06/20 10/07/20 23:59 23:59 23:59 23:59 Intake Total 1594 / 1594 827 / 827 Balance 1594 / 1594 827 / 827 Physical Exam Oriented: Normal Eyes: Normal Ear: Normal Nose: Normal Respiratory: Generalized and Diminished Cardiovascular: Normal Auscultation: Bowel Sounds: Normal Tenderness: Normal Skin: Decreased Turgur Musculoskeletal: Normal Psychiatric: Normal Mood Description: Calm Affect: Normal Speech Pattern: Clear and Appropriate Laboratory and Diagnostics Result Diagrams: 10/07/20 06:10 10/07/20 06:10 Labs: Laboratory WBC 3.1 X10^3/uL (3.6-10.0) L 10/07/20 06:10 RBC 3.02 X10^6/uL (3.5-5.4) L 10/07/20 06:10 Hgb 10.8 g/dL (12.0-16.0) L 10/07/20 06:10 Hct 30.9 % (36.0-47.0) L 10/07/20 06:10 MCV 102.3 fL (80.0-100.0) H 10/07/20 06:10 MCH 35.9 pg (27.0-34.0) H 10/07/20 06:10 MCHC 35.1 g/dL (33.0-35.0) H 10/07/20 06:10 RDW 19.5 % (11.6-16.5) H 10/07/20 06:10 Plt Count 141 X10^3/uL (150.0-450.0) L 10/07/20 06:10 Plt Count Comment Decreased (ADEQUATE) A 10/06/20 05:20 MPV 8.9 fL (7.4-11.0) 10/07/20 06:10 Neut % (Auto) 89.7 % (42.0-75.0) H 10/07/20 06:10 Lymph % (Auto) 7.8 % (21.0-51.0) L 10/07/20 06:10 [place] % (Auto) 1.4 % (0.0-13.0) 10/07/20 06:10 Eos % (Auto) 0.3 % (0.9-2.9) L 10/07/20 06:10 Baso % (Auto) 0.8 % (0.2-1.0) 10/07/20 06:10 Neut # (Auto) 2.8 x10^3/uL (2.2-4.8) 10/07/20 06:10 Lymph # (Auto) 0.2 X10^3/uL (1.3-2.9) L 10/07/20 06:10 [place] # (Auto) 0 x10^3/uL (0.3-0.8) L 10/07/20 06:10 Eos # (Auto) 0.0 x10^3/uL (0.0-0.2) 10/07/20 06:10 Baso # (Auto) 0.0 X10^3/uL (0.0-0.1) 10/07/20 06:10 Absolute Nucleated RBC 0.1 /100WBC 10/07/20 06:10 Total Counted 100 10/06/20 05:20 Neutrophils % (Manual) 89 % (39-76) H 10/06/20 05:20 Band Neutrophils % 1 % (0-10) 10/06/20 05:20 Lymphocytes % (Manual) 8 % (13-43) L 10/06/20 05:20 Monocytes % (Manual) 2 % (4-9) L 10/06/20 05:20 Plt Morphology Comment Normal (NORMAL) 10/06/20 05:20 RBC Morphology Normal (NORMAL) 10/06/20 05:20 Sodium 137 mmol/L (136-145) 10/07/20 06:10 Corrected Sodium TNP 10/07/20 06:10 Potassium 3.1 mmol/L (3.5-5.1) L 10/07/20 06:10 Chloride 103 mmol/L (98-107) 10/07/20 06:10 Carbon Dioxide 23.2 mmol/L (21-32) 10/07/20 06:10 BUN 8 mg/dL (7-18) 10/07/20 06:10 Creatinine 0.64 mg/dL (0.55-1.02) 10/07/20 06:10 Est GFR (MDRD) Af Amer > 60 (>60) 10/07/20 06:10 Est GFR (MDRD) Non-Af > 60 (>60) 10/07/20 06:10 Glucose 100 mg/dL (65-99) H 10/07/20 06:10 Calcium 7.4 mg/dL (8.5-10.1) L 10/07/20 06:10 Corrected Calcium 8.8 mg/dL (8.5-10.1) 10/07/20 06:10 Magnesium 1.8 mg/dL (1.7-2.9) 10/06/20 05:20 Total Bilirubin 0.80 mg/dL (0.2-1.0) 10/07/20 06:10 AST 24 Units/L (15-37) 10/07/20 06:10 ALT 21 Units/L (12-78) 10/07/20 06:10 Alkaline Phosphatase 108 Units/L (46-116) 10/07/20 06:10 Creatine Kinase 41 Units/L (26-192) 10/05/20 18:34 CK-MB (CK-2) < 1.0 ng/mL (0-4.0) 10/05/20 18:34 CK/CKMB % Calc 2.4 % (<4) 10/05/20 18:34 Troponin I < 0.02 ng/mL (0-1.5) 10/05/20 18:34 Total Protein 5.7 g/dL (6.4-8.2) L 10/07/20 06:10 Albumin 2.2 g/dL (3.4-5.0) L 10/07/20 06:10 Globulin 3.5 g/dL (2.5-4.5) 10/07/20 06:10 Albumin/Globulin Ratio 0.6 Ratio (1.1-2.1) L 10/07/20 06:10 Amylase 76 Units/L (25-115) 10/06/20 05:20 Lipase 180 Units/L (73-393) 10/05/20 18:34 Specimen Type Clean catch urine 10/07/20 05:35 Urine Color Yellow (YELLOW) 10/07/20 05:35 Urine Appearance Clear (CLEAR) 10/07/20 05:35 Urine pH 5.0 (5.0 - 8.0) 10/07/20 05:35 Ur Specific [place] 1.015 (1.000-1.030) 10/07/20 05:35 Urine Protein 1+ (NEGATIVE) 10/07/20 05:35 Urine Glucose (UA) Negative (NEGATIVE) 10/07/20 05:35 Urine Ketones 3+ (NEGATIVE) 10/07/20 05:35 Urine Occult Blood 1+ (NEGATIVE) 10/07/20 05:35 Urine Nitrite Negative (NEGATIVE) 10/07/20 05:35 Urine Bilirubin Negative (NEGATIVE) 10/07/20 05:35 Urine Urobilinogen Normal (NORMAL) 10/07/20 05:35 Ur Leukocyte Esterase Negative (NEGATIVE) 10/07/20 05:35 Urine RBC 0-2 /HPF (0-3) 10/07/20 05:35 Urine WBC 0-2 /HPF (0-5) 10/07/20 05:35 Ur Squamous Epith Cells Rare /HPF (NEGATIVE) 10/07/20 05:35 Urine Bacteria Negative /HPF (NEGATIVE) 10/07/20 05:35 Ur Culture Indicated? No/not indicated 10/07/20 05:35 SARS-CoV-2 (PCR) Negative (NEGATIVE) 10/05/20 23:23 Influenza Type A (PCR) Negative (NEGATIVE) 10/05/20 23:23 Influenza Type B (PCR) Negative (NEGATIVE) 10/05/20 23:23 RSV (PCR) Negative (NEGATIVE) 10/05/20 23:23 Plan (1) Pathologic cervical vertebral fracture: Status: Acute Qualifiers: Encounter type: initial encounter Qualified Code(s): M84.48XA - Pathological fracture, other site, initial encounter for fracture (2) Weakness: Status: Acute (3) Breast cancer metastasized to bone: Status: Acute Qualifiers: Laterality: unspecified laterality Qualified Code(s): C50.919 - Malignant neoplasm of unspecified site of unspecified female breast; C79.51 - Secondary malignant neoplasm of bone (4) GERD (gastroesophageal reflux disease): Status: Chronic Qualifiers: Esophagitis presence: without esophagitis Qualified Code(s): K21.9 - Gastro-esophageal reflux disease without esophagitis (5) Dehydration: Status: Acute (6) Hypokalemia: Status: Acute (7) Diarrhea: Status: Acute Qualifiers: Diarrhea type: unspecified type Qualified Code(s): R19.7 - Diarrhea, unspecified
[2020-10-07 12:30] VITALS: BMI 30.1
[2020-10-07] MEDS: MAXIPIME VIAL 2 GRAMS 2 G in NS 100 ML IV + SPIKE MINIBAG* 100 ML IV SCH ×3 (13:31→21:42)
[2020-10-07] MEDS: IMODIUM CAP 2 MG PO PRN ×2 (13:53→21:56)
--- NOTE | 2020-10-07 15:32 | RAD ---
HISTORYlow grade fever, sob, rule put infectionSTUDYCHEST, 1 [id number]/29/2021.FINDINGSThe trachea is midline. The cardiac silhouette is at the upper limits of normal in size. There is a right subclavian Khivgs-J-Rckw with tip projecting over the cavoatrial junction. There has been slight increase in interstitial prominence with interval development of patchy bilateral airspace opacities. There is no significant pleural effusion or pneumothorax. Surgical clips project over the left axilla and lateral left chest wall. Bony thorax is grossly unremarkable.IMPRESSIONIncreasing interstitial prominence with interval development of patchy bilateral airspace opacities. Findings are concerning for developing pneumonia and/or worsening edema.Electronically signed by: ABDULKADIR KIDD (Oct 07, 2020 15:31:17)
[2020-10-07] MEDS: ZITHROMAX TAB 250 MG PO SCH (17:45)
[2020-10-07] MEDS: NS + KCL 20 MEQ/L 1,000 ML IV SCH ×2 (18:16)
[2020-10-07] MEDS: ARIMIDEX PO SCH (21:42)
[2020-10-07] MEDS ORDERED: IMODIUM CAP 2 MG PO ONE (21:49)
[2020-10-08] MEDS: NS + KCL 20 MEQ/L 1,000 ML IV SCH ×3 (03:35→13:23)
[2020-10-08] MEDS: MAXIPIME VIAL 2 GRAMS 2 G in NS 100 ML IV + SPIKE MINIBAG* 100 ML IV SCH ×4 (06:15→21:35)
[2020-10-08] MEDS: ULTRAM PO SCH ×3 (06:15→21:36)
[2020-10-08 06:53] LABS: BASOPHILS % (AUTO) 0.9 % (0.2-1.0); EOSINOPHILS % (AUTO) 0.2 % (0.9-2.9); HEMATOCRIT 28.7 % (36.0-47.0); HEMOGLOBIN 10.3 g/dL (12.0-16.0); LYMPHOCYTES # (AUTO) 0.2 X10^3/uL (1.3-2.9); LYMPHOCYTES % (AUTO) 8.2 % (21.0-51.0); MEAN CORPUSCULAR HEMOGLOBIN 36.1 pg (27.0-34.0); MEAN CORPUSCULAR HGB CONC 35.9 g/dL (33.0-35.0); MEAN CORPUSCULAR VOLUME 100.6 fL (80.0-100.0); MEAN PLATELET VOLUME 8.8 fL (7.4-11.0); MONOCYTES # (AUTO) 0 x10^3/uL (0.3-0.8); MONOCYTES % (AUTO) 1.5 % (0.0-13.0); NEUTROPHILS # (AUTO) 2.5 x10^3/uL (2.2-4.8); NEUTROPHILS % (AUTO) 89.2 % (42.0-75.0); PLATELET COUNT 139 X10^3/uL (150.0-450.0); RED BLOOD COUNT 2.85 X10^6/uL (3.5-5.4); RED CELL DISTRIBUTION WIDTH 19.3 % (11.6-16.5); WHITE BLOOD COUNT 2.8 X10^3/uL (3.6-10.0)
[2020-10-08 07:05] LABS: ALANINE AMINOTRANSFERASE 20 Units/L (12-78); ALKALINE PHOSPHATASE 106 Units/L (46-116); ASPARTATE AMINO TRANSFERASE 22 Units/L (15-37); BLOOD UREA NITROGEN 6 mg/dL (7-18); CALCIUM 6.7 mg/dL (8.5-10.1); CHLORIDE 105 mmol/L (98-107); COR CA(FOR HYPOALB) 8.3 mg/dL (8.5-10.1); COR NA(FOR HYPERGLY) 138 mmol/L (136-145); CREATININE 0.68 mg/dL (0.55-1.02); SODIUM 137 mmol/L (136-145); TOTAL PROTEIN 5.4 g/dL (6.4-8.2); eGFR NON BLACK RACES > 60 (>60)
[2020-10-08 07:20] LABS: CARBON DIOXIDE 21.3 mmol/L (21-32)
[2020-10-08] MEDS ORDERED: MICRO K EXTEN CAP 10 MEQ PO PRN ×2 (07:57→10:27)
[2020-10-08] MEDS ORDERED: KLOR-CON PO PRN ×2 (07:57→10:27)
[2020-10-08] MEDS ORDERED: K-DUR TAB 20 MEQ PO PRN ×2 (07:57→09:32)
[2020-10-08] MEDS ORDERED: POTASSIUM CHL 60 MEQ/NS 0.45% 500 ML IV PRN ×2 (07:57→10:27)
[2020-10-08] MEDS ORDERED: POTASSIUM CHLORIDE LIQ 20 MEQ UDC PO PRN ×2 (07:57→10:27)
[2020-10-08] MEDS ORDERED: POTASSIUM CHL 40 MEQ/NS 0.45% 500 ML IV PRN ×2 (07:57→10:27)
[2020-10-08 08:10] LABS: PLATELET MORPHOLOGY COMMENT NORMAL (NORMAL)
[2020-10-08] MEDS: ZITHROMAX TAB 250 MG PO SCH (09:23)
--- NOTE | 2020-10-08 10:13 | RAD ---
HISTORYABN CXRSTUDYCHEST, 1 VIEWCOMPARISONPortable chest October 07, 2020 and older film of October 05, 2020 but no older films.FINDINGSThe trachea is midline. A right subclavian port is in place tip in the superior vena cava. The cardiac silhouette is unremarkable. Bilateral right greater than left interstitial lung disease is present the left lung base is improved compared to October 05 there has been increase in interstitial markings peripherally on the right lung no consolidation or effusion is observed. The bony thorax is unremarkable. Surgical changes of left mastectomy and axillary lymph node surgery are observedIMPRESSIONInterstitial lung disease right greater than left increased on the right compared to October 05 but improved on the left since October 05. Recommend continued follow-upPostsurgical changes from left mastectomy and axillary lymph node dissection.Electronically signed by: SUHAIL BRODERICK (Oct 08, 2020 10:11:51)
[2020-10-08] MEDS ORDERED: K-RIDER 10 MEQ/NS 100 ML 10 MEQ/100 ML BAG IV PRN (10:27)
[2020-10-08] MEDS: K-DUR TAB 20 MEQ PO PRN (10:50)
[2020-10-08] MEDS: LOVENOX INJ 40 MG SYR SC SCH (10:52)
[2020-10-08] MEDS ORDERED: NS + KCL 20 MEQ/L 1,000 ML IV ONE (13:15)
[2020-10-08] MEDS: SYNTHROID 75 mcg TAB PO SCH (16:53)
[2020-10-08] MEDS ORDERED: IMODIUM CAP 2 MG PO ONE ×3 (17:53→22:38)
[2020-10-08] MEDS: IMODIUM CAP 2 MG PO PRN (17:58)
[2020-10-08] MEDS: LIFITEGRAST 5% OP SCH (17:59)
[2020-10-08] MEDS: BRIMONIDINE 0.1% OP SCH (18:04)
[2020-10-08] MEDS: ARIMIDEX PO SCH (21:23)
[2020-10-08] MEDS: KLONOPIN TAB 0.5 MG PO SCH (21:24)
[2020-10-08] MEDS ORDERED: LOMOTIL ONE (22:34)
[2020-10-09] MEDS ORDERED: NS + KCL 20 MEQ/L 1,000 ML IV ONE (02:04)
[2020-10-09] MEDS: IMODIUM CAP 2 MG PO PRN (02:10)
[2020-10-09] MEDS: NS + KCL 20 MEQ/L 1,000 ML IV SCH ×2 (03:00→13:55)
[2020-10-09] MEDS: MAXIPIME VIAL 2 GRAMS 2 G in NS 100 ML IV + SPIKE MINIBAG* 100 ML IV SCH ×3 (06:20→21:00)
[2020-10-09] MEDS: ULTRAM PO SCH ×3 (06:21→21:00)
[2020-10-09] MEDS: BRIMONIDINE 0.1% OP SCH ×3 (06:21→21:00)
[2020-10-09 06:41] LABS: BASOPHILS % (AUTO) 0.9 % (0.2-1.0); EOSINOPHILS % (AUTO) 0.2 % (0.9-2.9); HEMATOCRIT 29.5 % (36.0-47.0); HEMOGLOBIN 10.6 g/dL (12.0-16.0); LYMPHOCYTES # (AUTO) 0.3 X10^3/uL (1.3-2.9); LYMPHOCYTES % (AUTO) 9.3 % (21.0-51.0); MEAN CORPUSCULAR HEMOGLOBIN 36.3 pg (27.0-34.0); MEAN CORPUSCULAR HGB CONC 35.9 g/dL (33.0-35.0); MEAN CORPUSCULAR VOLUME 101.2 fL (80.0-100.0); MEAN PLATELET VOLUME 9.1 fL (7.4-11.0); MONOCYTES # (AUTO) 0.1 x10^3/uL (0.3-0.8); MONOCYTES % (AUTO) 1.7 % (0.0-13.0); NEUTROPHILS # (AUTO) 2.7 x10^3/uL (2.2-4.8); NEUTROPHILS % (AUTO) 87.9 % (42.0-75.0); PLATELET COUNT 160 X10^3/uL (150.0-450.0); RED BLOOD COUNT 2.92 X10^6/uL (3.5-5.4); RED CELL DISTRIBUTION WIDTH 19.4 % (11.6-16.5); WHITE BLOOD COUNT 3.1 X10^3/uL (3.6-10.0)
[2020-10-09 07:07] LABS: ALANINE AMINOTRANSFERASE 22 Units/L (12-78); ALKALINE PHOSPHATASE 112 Units/L (46-116); ASPARTATE AMINO TRANSFERASE 28 Units/L (15-37); BLOOD UREA NITROGEN 8 mg/dL (7-18); CALCIUM 7.2 mg/dL (8.5-10.1); CARBON DIOXIDE 21.9 mmol/L (21-32); CHLORIDE 105 mmol/L (98-107); COR CA(FOR HYPOALB) 8.8 mg/dL (8.5-10.1); SODIUM 136 mmol/L (136-145); TOTAL PROTEIN 5.5 g/dL (6.4-8.2); eGFR NON BLACK RACES > 60 (>60)
[2020-10-09] MEDS: XALATAN OP SCH ×3 (07:08→09:11)
[2020-10-09] MEDS: LIFITEGRAST 5% OP SCH ×2 (08:48→17:08)
[2020-10-09] MEDS: ZITHROMAX TAB 250 MG PO SCH (09:02)
[2020-10-09] MEDS: LOVENOX INJ 40 MG SYR SC SCH (09:02)
[2020-10-09] MEDS: K-DUR TAB 20 MEQ PO PRN (11:09)
[2020-10-09] MEDS: MAGNESIUM SULFATE 1 GRAM/100 mL PREMIX 1 GM/100 ML BAG IV PRN ×2 (12:42→13:59)
[2020-10-09] MEDS: SYNTHROID 75 mcg TAB PO SCH (16:31)
[2020-10-09] MEDS: ARIMIDEX PO SCH (21:00)
[2020-10-09] MEDS: KLONOPIN TAB 0.5 MG PO SCH (23:16)
[2020-10-10] MEDS: NS + KCL 20 MEQ/L 1,000 ML IV SCH ×3 (05:49→16:20)
[2020-10-10] MEDS: MAXIPIME VIAL 2 GRAMS 2 G in NS 100 ML IV + SPIKE MINIBAG* 100 ML IV SCH ×3 (05:49→21:35)
[2020-10-10] MEDS: LIFITEGRAST 5% OP SCH ×2 (06:17→17:08)
[2020-10-10] MEDS: ULTRAM PO SCH ×2 (06:18→14:30)
[2020-10-10] MEDS ORDERED: NYSTATIN SUSP PO PRN ×2 (06:19→06:52)
[2020-10-10 06:28] LABS: BASOPHILS % (AUTO) 0.8 % (0.2-1.0); EOSINOPHILS % (AUTO) 0.5 % (0.9-2.9); HEMATOCRIT 30.8 % (36.0-47.0); HEMOGLOBIN 10.9 g/dL (12.0-16.0); LYMPHOCYTES # (AUTO) 0.2 X10^3/uL (1.3-2.9); LYMPHOCYTES % (AUTO) 8.2 % (21.0-51.0); MEAN CORPUSCULAR HGB CONC 35.3 g/dL (33.0-35.0); MEAN CORPUSCULAR VOLUME 101.9 fL (80.0-100.0); MONOCYTES # (AUTO) 0.1 x10^3/uL (0.3-0.8); MONOCYTES % (AUTO) 2.9 % (0.0-13.0); NEUTROPHILS # (AUTO) 2.5 x10^3/uL (2.2-4.8); NEUTROPHILS % (AUTO) 87.6 % (42.0-75.0); PLATELET COUNT 209 X10^3/uL (150.0-450.0); RED BLOOD COUNT 3.02 X10^6/uL (3.5-5.4); RED CELL DISTRIBUTION WIDTH 19.6 % (11.6-16.5); WHITE BLOOD COUNT 2.9 X10^3/uL (3.6-10.0)
[2020-10-10 06:58] LABS: ALANINE AMINOTRANSFERASE 22 Units/L (12-78); ALBUMIN 1.9 g/dL (3.4-5.0); ALKALINE PHOSPHATASE 126 Units/L (46-116); ASPARTATE AMINO TRANSFERASE 29 Units/L (15-37); BLOOD UREA NITROGEN 9 mg/dL (7-18); CALCIUM 6.8 mg/dL (8.5-10.1); CARBON DIOXIDE 22.4 mmol/L (21-32); CHLORIDE 104 mmol/L (98-107); COR CA(FOR HYPOALB) 8.5 mg/dL (8.5-10.1); CREATININE 0.59 mg/dL (0.55-1.02); SODIUM 136 mmol/L (136-145); TOTAL PROTEIN 5.5 g/dL (6.4-8.2); eGFR NON BLACK RACES > 60 (>60)
--- NOTE | 2020-10-10 08:42 | RAD ---
HISTORYABNORMAL CXRSTUDYCHEST, 1 [id number]/01/2021.TECHNIQUEAP view of the chestFINDINGSCardiac silhouette is borderline in size. Right chest wall port with tip in good position. Similar appearance of right worse than left lung airspace and interstitial opacities. Left chest wall surgical clips are present. No definite pleural effusion or pneumothorax.IMPRESSIONNo significant change.Electronically signed by: Zhen Redd (Oct 10, 2020 08:41:20)
[2020-10-10] MEDS: BRIMONIDINE 0.1% OP SCH ×2 (09:08→21:35)
[2020-10-10] MEDS: XALATAN OP SCH (09:09)
[2020-10-10] MEDS: LOVENOX INJ 40 MG SYR SC SCH (09:10)
[2020-10-10] MEDS: ZITHROMAX TAB 250 MG PO SCH (09:20)
[2020-10-10] MEDS: SYNTHROID 75 mcg TAB PO SCH (16:41)
[2020-10-10] MEDS: ARIMIDEX PO SCH (21:35)
[2020-10-11] MEDS: KLONOPIN TAB 0.5 MG PO SCH (05:44)
[2020-10-11] MEDS: ULTRAM PO SCH ×3 (05:44→17:33)
[2020-10-11] MEDS: MAXIPIME VIAL 2 GRAMS 2 G in NS 100 ML IV + SPIKE MINIBAG* 100 ML IV SCH ×3 (05:46→22:30)
[2020-10-11] MEDS: LIFITEGRAST 5% OP SCH ×2 (06:30→17:34)
[2020-10-11 06:34] LABS: BASOPHILS % (AUTO) 0.8 % (0.2-1.0); EOSINOPHILS % (AUTO) 0.5 % (0.9-2.9); HEMATOCRIT 27.7 % (36.0-47.0); HEMOGLOBIN 9.7 g/dL (12.0-16.0); LYMPHOCYTES # (AUTO) 0.2 X10^3/uL (1.3-2.9); LYMPHOCYTES % (AUTO) 9.9 % (21.0-51.0); MEAN CORPUSCULAR HGB CONC 35.1 g/dL (33.0-35.0); MEAN CORPUSCULAR VOLUME 102.6 fL (80.0-100.0); MONOCYTES # (AUTO) 0.1 x10^3/uL (0.3-0.8); MONOCYTES % (AUTO) 4.5 % (0.0-13.0); NEUTROPHILS % (AUTO) 84.3 % (42.0-75.0); PLATELET COUNT 228 X10^3/uL (150.0-450.0); RED CELL DISTRIBUTION WIDTH 19.6 % (11.6-16.5); WHITE BLOOD COUNT 2.4 X10^3/uL (3.6-10.0)
[2020-10-11 06:50] LABS: ALANINE AMINOTRANSFERASE 20 Units/L (12-78); ALBUMIN 1.7 g/dL (3.4-5.0); ALKALINE PHOSPHATASE 130 Units/L (46-116); ASPARTATE AMINO TRANSFERASE 26 Units/L (15-37); BLOOD UREA NITROGEN 8 mg/dL (7-18); CALCIUM 6.6 mg/dL (8.5-10.1); CARBON DIOXIDE 23.4 mmol/L (21-32); CHLORIDE 104 mmol/L (98-107); COR CA(FOR HYPOALB) 8.4 mg/dL (8.5-10.1); CREATININE 0.57 mg/dL (0.55-1.02); SODIUM 136 mmol/L (136-145); TOTAL PROTEIN 5.3 g/dL (6.4-8.2); eGFR NON BLACK RACES > 60 (>60)
[2020-10-11 07:56] LABS: BAND NEUTROPHILS % 1 % (0-10); PLATELET MORPHOLOGY COMMENT NORMAL (NORMAL)
[2020-10-11] MEDS: BRIMONIDINE 0.1% OP SCH ×2 (09:29→22:30)
[2020-10-11] MEDS: XALATAN OP SCH (09:29)
[2020-10-11] MEDS: LOVENOX INJ 40 MG SYR SC SCH (09:41)
[2020-10-11] MEDS: ZITHROMAX TAB 250 MG PO SCH (09:42)
[2020-10-11] MEDS: NS + KCL 20 MEQ/L 1,000 ML IV SCH ×2 (09:56→18:17)
--- NOTE | 2020-10-11 10:42 | RAD ---
HISTORYABNORMAL CXRSTUDYCHEST, 1 VIEWCOMPARISONPortable chest October 10, 2020.FINDINGSThe trachea is midline. The cardiac silhouette is unremarkable. A right subclavian central venous port is in place tip in the superior vena cava. The infiltrates in the right upper lobe left upper lobe and right lower lobe are noted consistent with multifocal pneumonia. The infiltrates in the upper lobes are unchanged from October 10 but mildly increased in the right lung base compared to prior day's film. The postsurgical changes from left mastectomy and axillary surgery are stable. The bony thorax is unremarkable.IMPRESSIONStable right and left upper lobe infiltrates with mild increase in the infiltrate in the right lung base compared to October 10, 2020.Electronically signed by: SUHAIL BRODERICK (Oct 11, 2020 10:41:02)
--- NOTE | 2020-10-11 12:50 | MRI ---
HISTORYAMS, INCREASED LETHARGYSTUDYBRAIN W/O CONCOMPARISONNone.TECHNIQUEMultiplanar multi-sequence MRI of the brain was obtained utilizing standard departmental protocol. Sagittal and axial T1 weighted images were obtained. Axial T2 and flair weighted images were performed as well. Axial diffusion weighted and ADC trace mapping was performed.FINDINGSDiffusion imaging: [Normal, no acute infarct.]Susceptibility weighted imaging: [No abnormal susceptibility artifact.]Brain volume: [Appropriate for age.]Ventricles and basal cisterns: [Normal for age.]Extra-axial spaces: [No extra-axial collection.]Cerebral parynchema: [No mass, hematoma, or mass effect.] Mild amount of T2 and Flair hyperintensities in the supratentorial subcortical and deep white matter.Pituitary and other sagittal midline structures: [Normal.]Visualized orbits: [Normal.]Paranasal sinuses and mastoid air cells: [Right maxillary sinus small retention cyst. Mild fluid in the mastoid air cells.]Bones: [Intact.]Other: [None.]IMPRESSION[Mild chronic small vessel disease. Mild mastoid air cell fluid bilaterally.No acute intracranial abnormality.]Electronically signed by: Zhen Redd (Oct 11, 2020 12:48:39)
[2020-10-11] MEDS: SYNTHROID 75 mcg TAB PO SCH (17:00)
[2020-10-11] MEDS: IMODIUM CAP 2 MG PO PRN (18:05)
[2020-10-11 18:36] LABS: ABG ALLEN TEST POS; ABG HCO3 25.5 mmol/L (22-26)
[2020-10-11 19:36] LABS: CKMB % 4.6 % (<4); CREATINE KINASE 33 Units/L (26-192); CREATINE KINASE MB 1.5 ng/mL (0-4.0); TROPONIN I < 0.02 ng/mL (0-1.5)
[2020-10-11] MEDS: XOPENEX 1.25 MG/3 ML NEBULE NEB SCH (21:00)
[2020-10-11] MEDS: ARIMIDEX PO SCH (22:30)
[2020-10-12] MEDS: IMODIUM CAP 2 MG PO PRN ×2 (02:30→09:38)
[2020-10-12] MEDS: NS + KCL 20 MEQ/L 1,000 ML IV SCH ×4 (03:45→21:00)
[2020-10-12] MEDS: XOPENEX 1.25 MG/3 ML NEBULE NEB SCH ×4 (05:47→22:11)
[2020-10-12] MEDS: LIFITEGRAST 5% OP SCH ×2 (05:54→17:44)
[2020-10-12] MEDS: MAXIPIME VIAL 2 GRAMS 2 G in NS 100 ML IV + SPIKE MINIBAG* 100 ML IV SCH ×3 (05:55→21:01)
[2020-10-12 06:33] LABS: BASOPHILS % (AUTO) 1.3 % (0.2-1.0); EOSINOPHILS % (AUTO) 0.9 % (0.9-2.9); HEMATOCRIT 29.1 % (36.0-47.0); LYMPHOCYTES # (AUTO) 0.3 X10^3/uL (1.3-2.9); LYMPHOCYTES % (AUTO) 11.7 % (21.0-51.0); MEAN CORPUSCULAR HEMOGLOBIN 35.7 pg (27.0-34.0); MEAN CORPUSCULAR HGB CONC 34.4 g/dL (33.0-35.0); MEAN CORPUSCULAR VOLUME 103.8 fL (80.0-100.0); MEAN PLATELET VOLUME 8.8 fL (7.4-11.0); MONOCYTES # (AUTO) 0.1 x10^3/uL (0.3-0.8); MONOCYTES % (AUTO) 6.2 % (0.0-13.0); NEUTROPHILS # (AUTO) 1.9 x10^3/uL (2.2-4.8); NEUTROPHILS % (AUTO) 79.9 % (42.0-75.0); PLATELET COUNT 260 X10^3/uL (150.0-450.0); RED CELL DISTRIBUTION WIDTH 19.3 % (11.6-16.5); WHITE BLOOD COUNT 2.4 X10^3/uL (3.6-10.0)
[2020-10-12 06:48] LABS: ALANINE AMINOTRANSFERASE 22 Units/L (12-78); ALBUMIN 1.6 g/dL (3.4-5.0); ALKALINE PHOSPHATASE 144 Units/L (46-116); ASPARTATE AMINO TRANSFERASE 32 Units/L (15-37); BLOOD UREA NITROGEN 7 mg/dL (7-18); CALCIUM 6.7 mg/dL (8.5-10.1); CARBON DIOXIDE 23.6 mmol/L (21-32); CHLORIDE 106 mmol/L (98-107); COR CA(FOR HYPOALB) 8.6 mg/dL (8.5-10.1); CREATININE 0.51 mg/dL (0.55-1.02); SODIUM 138 mmol/L (136-145); TOTAL PROTEIN 5.2 g/dL (6.4-8.2); eGFR NON BLACK RACES > 60 (>60)
[2020-10-12 07:05] LABS: BAND NEUTROPHILS % 7 % (0-10)
[2020-10-12 07:06] LABS: PLATELET MORPHOLOGY COMMENT NORMAL (NORMAL)
[2020-10-12 07:07] LABS: ANISOCYTOSIS SLIGHT
[2020-10-12] MEDS ORDERED: IMODIUM CAP 2 MG PO ONE (09:24)
[2020-10-12] MEDS: LOVENOX INJ 40 MG SYR SC SCH (10:00)
[2020-10-12] MEDS: ZITHROMAX TAB 250 MG PO SCH (10:00)
[2020-10-12] MEDS: XALATAN OP SCH (10:00)
[2020-10-12] MEDS: BRIMONIDINE 0.1% OP SCH ×2 (10:00→21:01)
[2020-10-12] MEDS: SYNTHROID 75 mcg TAB PO SCH (17:14)
[2020-10-12] MEDS: ARIMIDEX PO SCH (21:01)
[2020-10-13] MEDS: MAXIPIME VIAL 2 GRAMS 2 G in NS 100 ML IV + SPIKE MINIBAG* 100 ML IV SCH ×3 (05:52→21:13)
[2020-10-13] MEDS: LIFITEGRAST 5% OP SCH ×2 (05:52→18:08)
[2020-10-13] MEDS: XOPENEX 1.25 MG/3 ML NEBULE NEB SCH ×3 (06:13→21:19)
[2020-10-13] MEDS: IMODIUM CAP 2 MG PO PRN ×2 (08:15→17:13)
[2020-10-13] MEDS: NS + KCL 20 MEQ/L 1,000 ML IV SCH ×3 (08:27→21:13)
[2020-10-13] MEDS: ZITHROMAX TAB 250 MG PO SCH (08:28)
[2020-10-13] MEDS: BRIMONIDINE 0.1% OP SCH ×2 (09:05→21:12)
[2020-10-13] MEDS: XALATAN OP SCH (09:30)
[2020-10-13] MEDS: LOVENOX INJ 40 MG SYR SC SCH (10:20)
[2020-10-13 10:37] LABS: BASOPHILS % (AUTO) 1.3 % (0.2-1.0); EOSINOPHILS # (AUTO) 0.1 x10^3/uL (0.0-0.2); EOSINOPHILS % (AUTO) 1.7 % (0.9-2.9); HEMATOCRIT 31.5 % (36.0-47.0); HEMOGLOBIN 10.9 g/dL (12.0-16.0); LYMPHOCYTES # (AUTO) 0.4 X10^3/uL (1.3-2.9); LYMPHOCYTES % (AUTO) 14.5 % (21.0-51.0); MEAN CORPUSCULAR HEMOGLOBIN 35.7 pg (27.0-34.0); MEAN CORPUSCULAR HGB CONC 34.7 g/dL (33.0-35.0); MEAN CORPUSCULAR VOLUME 102.9 fL (80.0-100.0); MEAN PLATELET VOLUME 8.4 fL (7.4-11.0); MONOCYTES # (AUTO) 0.2 x10^3/uL (0.3-0.8); MONOCYTES % (AUTO) 8.2 % (0.0-13.0); NEUTROPHILS # (AUTO) 2.2 x10^3/uL (2.2-4.8); NEUTROPHILS % (AUTO) 74.3 % (42.0-75.0); PLATELET COUNT 341 X10^3/uL (150.0-450.0); RED BLOOD COUNT 3.06 X10^6/uL (3.5-5.4); RED CELL DISTRIBUTION WIDTH 19.8 % (11.6-16.5)
--- NOTE | 2020-10-13 10:39 | RAD ---
HISTORYfailed output testSTUDYCHEST, 1 [id number]/04/2021FINDINGSStable cardiomediastinal silhouette. Stable right subclavian Port-A-Cath. Multifocal bilateral upper lobe and right basilar opacities not significantly changed. No sizable effusion or visible pneumothorax. Operative changes left chest. No acute osseous finding.IMPRESSIONNo significant interval change.Electronically signed by: Naveen Boles (Oct 13, 2020 10:37:45)
[2020-10-13 10:45] LABS: ALANINE AMINOTRANSFERASE 26 Units/L (12-78); ALKALINE PHOSPHATASE 162 Units/L (46-116); ASPARTATE AMINO TRANSFERASE 31 Units/L (15-37); BLOOD UREA NITROGEN 6 mg/dL (7-18); CALCIUM 7.3 mg/dL (8.5-10.1); CARBON DIOXIDE 24.4 mmol/L (21-32); CHLORIDE 106 mmol/L (98-107); COR CA(FOR HYPOALB) 8.9 mg/dL (8.5-10.1); COR NA(FOR HYPERGLY) 140 mmol/L (136-145); CREATININE 0.77 mg/dL (0.55-1.02); SODIUM 140 mmol/L (136-145); TOTAL PROTEIN 5.9 g/dL (6.4-8.2); eGFR NON BLACK RACES > 60 (>60)
[2020-10-13] MEDS ORDERED: NS + KCL 20 MEQ/L 1,000 ML IV ONE (12:36)
[2020-10-13 14:38] LABS: ABG BASE EXCESS 2.6 mmol/L (-2.0-2.0); ABG HCO3 26.2 mmol/L (22-26)
[2020-10-13 14:39] LABS: ABG ALLEN TEST POS
[2020-10-13] MEDS ORDERED: NS 100 ML IV 100 ML IV ONE (15:03)
--- NOTE | 2020-10-13 16:16 | CT ---
HISTORYConcern for pulmonary thromboembolism, dehydration, history of cancerSTUDYCTA OF THE CHEST WITH CONTRASTCOMPARISONNo recent comparison studiesTECHNIQUEAxial CT was performed from the thoracic inlet to the upper abdomen with an arterial phase IV contrast bolus. The axial sequences are reconstructed with multiplaner reformats;volume rendered MIP and/or 3D reconstruction was generated from the original axial dataset.FINDINGSA right thyroid lobe nodule measures 2.8 cm. The central airway is patent. No thoracic aortic dissection is identified. The ascending thoracic aorta appears mildly ectatic with a measurement of 3.8 cm. The cardiac silhouette is upper limits of normal. A prominent pericardial fat pad is noted and a trace pericardial effusion is observed. There is mild LVH. Moderate coronary atherosclerosis is evident. There is a small dependent right and left pleural effusion with associated passive atelectasis.The quality of the examination is mildly degraded by motion artifact. This, in turn, results in motion artifact through the pulmonary artery tributaries, limiting the overall evaluation. Additionally, there is suboptimal propagation of intravenous contrast into the more peripheral pulmonary artery branches. Within limitations of the exam, there are no definitive intraluminal filling defects of the pulmonary artery tributaries fulfilling criteria for an acute PE.The lungs are hyperexpanded. There is subpleural reticulation of the bilateral lung bases. The upper lung zones are associated with nonspecific geographic ground-glass opacities within a subpleural and peribronchial distribution, sparing the left apex, with mild septal thickening. Postsurgical changes of left mastectomy are observed along with axillary fabrice dissection. No suspicious lung nodules or discrete lung masses are identified. There are no enlarged mediastinal, hilar, or axillary lymph nodes of the chest. The imaged portions of the upper abdomen demonstrate no acute abnormalities. There is relative hypoattenuation of the liver compared to the spleen which may be magnified by early timing of the contrast bolus. However early hepatic steatosis cannot be excluded evaluation of the osseous structures reveals no aggressive bony lesions or acute osseous abnormalities. Spondylosis of the spine is observed. There are chronic appearing superior endplate compression deformities and Schmorl's node defects at the level of T1, T2, T3, T4 and T5 levels. Multilevel endplate Schmorl's node defects are observed. There are several chronic, healed right lateral thoracic rib fractures.IMPRESSIONNo evidence of pulmonary thromboembolism, within limitations of the exam.Developing geographic ground-glass opacities of the bilateral upper lung zones with interlobular septal thickening and small effusions. Findings may be associated with developing interstitial and alveolar edema, although superimposed atypical pneumonia may appear similar. Clinical correlation and radiographic follow-up is recommendedDiffuse coronary atherosclerosisPostsurgical changes of left mastectomy and axillary fabrice dissectionRight thyroid lobe nodule.Radiation dose reduction was achieved through individualized adjustment of kVP and/or mA, through adaptive statistical iterative reconstruction, and/or through automated tube current modulation.Electronically signed by: MALATHI JIMENEZ (Oct 13, 2020 16:17:33)
[2020-10-13] MEDS: SYNTHROID 75 mcg TAB PO SCH (17:13)
[2020-10-13] MEDS: ARIMIDEX PO SCH (21:12)
[2020-10-14] MEDS ORDERED: IMODIUM CAP 2 MG PO ONE (02:40)
[2020-10-14] MEDS: IMODIUM CAP 2 MG PO PRN ×2 (02:54→15:12)
[2020-10-14] MEDS: MAXIPIME VIAL 2 GRAMS 2 G in NS 100 ML IV + SPIKE MINIBAG* 100 ML IV SCH ×3 (05:15→21:32)
[2020-10-14] MEDS: LIFITEGRAST 5% OP SCH ×2 (05:15→18:30)
[2020-10-14] MEDS: XOPENEX 1.25 MG/3 ML NEBULE NEB SCH ×3 (06:28→20:16)
[2020-10-14 07:10] LABS: ALANINE AMINOTRANSFERASE 26 Units/L (12-78); ALBUMIN 1.9 g/dL (3.4-5.0); ALKALINE PHOSPHATASE 162 Units/L (46-116); ASPARTATE AMINO TRANSFERASE 36 Units/L (15-37); BLOOD UREA NITROGEN 4 mg/dL (7-18); CALCIUM 7.1 mg/dL (8.5-10.1); CARBON DIOXIDE 23.8 mmol/L (21-32); CHLORIDE 106 mmol/L (98-107); COR CA(FOR HYPOALB) 8.8 mg/dL (8.5-10.1); CREATININE 0.53 mg/dL (0.55-1.02); SODIUM 138 mmol/L (136-145); TOTAL PROTEIN 5.7 g/dL (6.4-8.2); eGFR NON BLACK RACES > 60 (>60)
[2020-10-14 07:26] LABS: BASOPHILS # (AUTO) 0.1 X10^3/uL (0.0-0.1); BASOPHILS % (AUTO) 2.4 % (0.2-1.0); EOSINOPHILS # (AUTO) 0.1 x10^3/uL (0.0-0.2); EOSINOPHILS % (AUTO) 2.8 % (0.9-2.9); HEMATOCRIT 31.4 % (36.0-47.0); HEMOGLOBIN 10.8 g/dL (12.0-16.0); LYMPHOCYTES # (AUTO) 0.6 X10^3/uL (1.3-2.9); LYMPHOCYTES % (AUTO) 20.3 % (21.0-51.0); MEAN CORPUSCULAR HEMOGLOBIN 35.5 pg (27.0-34.0); MEAN CORPUSCULAR HGB CONC 34.3 g/dL (33.0-35.0); MEAN CORPUSCULAR VOLUME 103.4 fL (80.0-100.0); MEAN PLATELET VOLUME 8.6 fL (7.4-11.0); MONOCYTES # (AUTO) 0.3 x10^3/uL (0.3-0.8); MONOCYTES % (AUTO) 10.4 % (0.0-13.0); NEUTROPHILS # (AUTO) 1.8 x10^3/uL (2.2-4.8); NEUTROPHILS % (AUTO) 64.1 % (42.0-75.0); PLATELET COUNT 347 X10^3/uL (150.0-450.0); RED BLOOD COUNT 3.04 X10^6/uL (3.5-5.4); WHITE BLOOD COUNT 2.8 X10^3/uL (3.6-10.0)
[2020-10-14] MEDS: BRIMONIDINE 0.1% OP SCH ×2 (08:45→20:26)
[2020-10-14] MEDS: ZITHROMAX TAB 250 MG PO SCH (08:45)
[2020-10-14] MEDS: XALATAN OP SCH (08:45)
[2020-10-14] MEDS: LOVENOX INJ 40 MG SYR SC SCH (08:46)
[2020-10-14] MEDS ORDERED: LOVENOX INJ 40 MG SYR SC ONE (08:50)
[2020-10-14 12:45] LABS: ABG ALLEN TEST POS; ABG BASE EXCESS 2.1 mmol/L (-2.0-2.0); ABG HCO3 25.1 mmol/L (22-26)
[2020-10-14] MEDS: SYNTHROID 75 mcg TAB PO SCH (16:38)
[2020-10-14] MEDS: NS + KCL 20 MEQ/L 1,000 ML IV SCH (16:38)
[2020-10-14] MEDS: ARIMIDEX PO SCH (20:25)
[2020-10-15] MEDS: NS + KCL 20 MEQ/L 1,000 ML IV SCH ×2 (01:22→13:11)
[2020-10-15] MEDS: LIFITEGRAST 5% OP SCH (05:04)
[2020-10-15] MEDS: MAXIPIME VIAL 2 GRAMS 2 G in NS 100 ML IV + SPIKE MINIBAG* 100 ML IV SCH ×2 (05:04→14:22)
[2020-10-15] MEDS: XOPENEX 1.25 MG/3 ML NEBULE NEB SCH ×2 (05:52→15:00)
[2020-10-15 07:06] LABS: BASOPHILS % (AUTO) 1.8 % (0.2-1.0); EOSINOPHILS # (AUTO) 0.1 x10^3/uL (0.0-0.2); EOSINOPHILS % (AUTO) 2.8 % (0.9-2.9); HEMATOCRIT 28.8 % (36.0-47.0); LYMPHOCYTES # (AUTO) 0.5 X10^3/uL (1.3-2.9); LYMPHOCYTES % (AUTO) 19.4 % (21.0-51.0); MEAN CORPUSCULAR HEMOGLOBIN 36.1 pg (27.0-34.0); MEAN CORPUSCULAR HGB CONC 34.8 g/dL (33.0-35.0); MEAN CORPUSCULAR VOLUME 103.7 fL (80.0-100.0); MEAN PLATELET VOLUME 8.5 fL (7.4-11.0); MONOCYTES # (AUTO) 0.4 x10^3/uL (0.3-0.8); NEUTROPHILS # (AUTO) 1.5 x10^3/uL (2.2-4.8); PLATELET COUNT 329 X10^3/uL (150.0-450.0); RED BLOOD COUNT 2.78 X10^6/uL (3.5-5.4); RED CELL DISTRIBUTION WIDTH 20.2 % (11.6-16.5); WHITE BLOOD COUNT 2.4 X10^3/uL (3.6-10.0)
[2020-10-15 07:08] LABS: ALANINE AMINOTRANSFERASE 28 Units/L (12-78); ALBUMIN 1.8 g/dL (3.4-5.0); ALKALINE PHOSPHATASE 154 Units/L (46-116); ASPARTATE AMINO TRANSFERASE 33 Units/L (15-37); BLOOD UREA NITROGEN 5 mg/dL (7-18); CALCIUM 7.4 mg/dL (8.5-10.1); CARBON DIOXIDE 24.9 mmol/L (21-32); CHLORIDE 106 mmol/L (98-107); COR CA(FOR HYPOALB) 9.2 mg/dL (8.5-10.1); CREATININE 0.52 mg/dL (0.55-1.02); SODIUM 139 mmol/L (136-145); TOTAL PROTEIN 5.3 g/dL (6.4-8.2); eGFR NON BLACK RACES > 60 (>60)
[2020-10-15 08:03] LABS: ANISOCYTOSIS 1+; PLATELET MORPHOLOGY COMMENT NORMAL (NORMAL)
[2020-10-15 09:07] VITALS: BP 131/81
[2020-10-15] MEDS: LOVENOX INJ 40 MG SYR SC SCH (09:08)
[2020-10-15] MEDS: XALATAN OP SCH (09:08)
[2020-10-15] MEDS: BRIMONIDINE 0.1% OP SCH (09:08)
[2020-10-15] MEDS: ZITHROMAX TAB 250 MG PO SCH (09:08)
[2020-10-15] MEDS: K-DUR TAB 20 MEQ PO PRN (09:09)
--- NOTE | 2020-10-15 09:16 | RAD ---
HISTORYPNEUMONIASTUDYCHEST x-ray, 1 VIEWCOMPARISONX-ray 10/13/2020FINDINGSPort catheter terminates in the region of the distal SVC. Is likely mild volume loss in the right alyssa thorax. Borderline cardiomegaly is seen. Mild bilateral lung infiltrates are similar to prior study. This may be due to pneumonia. No pneumothorax or pleural effusion is seen.IMPRESSIONBilateral pneumonia is similar to prior study.Electronically signed by: Bryce Harrison (Oct 15, 2020 09:14:26)
[2020-10-15] MEDS ORDERED: LEVAQUIN PREMIX IV 500 MG 500 MG/100 ML BAG IV SCH (12:00)
[2020-10-15] MEDS: MAGIC MOUTHWASH MT SCH ×2 (12:48→13:11)
[2020-10-15] MEDS: IMODIUM CAP 2 MG PO PRN (13:12)
== END 2020-10-15 16:45 | disposition home health service (06) | DRG 371 ==
LOC: ER 17:12 → MED/SURG 17:12 → OBS 10-06 18:43
PROVIDERS: ADMIT Internal Medicine; ATTEND Internal Medicine
DX: R41.82 Altered mental status, unspecified; D68.9 Coagulation defect, unspecified; A04.5 Campylobacter enteritis; E87.6 Hypokalemia; C79.51 Secondary malignant neoplasm of bone; E83.51 Hypocalcemia; D84.821 Immunodeficiency due to drugs; J18.9 Pneumonia, unspecified organism; M48.52XA Collapsed vertebra, not elsewhere classified, cervical region, initial encounter for fracture; R26.89 Other abnormalities of gait and mobility; I10 Essential (primary) hypertension; H40.9 Unspecified glaucoma; Z20.822 Contact with and (suspected) exposure to COVID-19; T45.1X5A Adverse effect of antineoplastic and immunosuppressive drugs, initial encounter; C50.919 Malignant neoplasm of unspecified site of unspecified female breast; R00.0 Tachycardia, unspecified; E86.0 Dehydration

== ENCOUNTER 2022-01-03 09:33 | Observation (INO) ==
[2022-01-03] MEDS ORDERED: NS 1,000 ML IV 1,000 ML IV ONE (09:59)
--- NOTE | 2022-01-03 09:59 | DR.DIZZY ---
HPI Time seen Time Seen by Provider: 01/03/22 09:45 Complaint Chief Complaint Doctor Comments: PATIENT C/O PROGRESSIVE LETHARGY AND HYPERSOMULENCE OVER PAST 3-4 DAYS. STATES THAT SHE JUST DONT FEEL GOOD. HAS HISTORY OF BREAST CANCER WITH METS AND IS NOW ON CHEMOTHERAPY. HAS NOT MADE ANY RESUSCITATION DECISIONS. Context Stroke Symptoms: Dizziness PMH PMH Past Medical History: Hypertension and Hyperthyroidism Past Surgical History: Yes Surgical History: Mastectomy Family History Family Medical History: Hypertension Social History Do you use any recreational Drugs:: No ROS Review of Systems Constitutional: Malaise, Weakness, Fatigue and Other (HYPERSOMULENT) Eyes: No Symptoms Reported ENTM: No Symptoms Reported Respiratoy: No Symptoms Reported Cardiovascular: No Symptoms Reported Gastrointestinal/Abdominal: No Symptoms Reported Genitourinary: No Symptoms Reported Neurological: No Symptoms Reported Musculoskeletal: No Symptoms Reported Integumentary: No Symptoms Reported Hematologic/Lymphatic: No Symptoms Reported Endocrine: No Symptoms Reported Psychiatric: No Symptoms Reported All Other Systems: Reviewed and Negative PE Vital Signs Vitals: Temperature 98.1 F Pulse Rate 88 Respiratory Rate 18 Blood Pressure [Left Arm] 135/60 Blood Pressure [Right Arm] 103/56 Blood Pressure 84/60 O2 Sat by Pulse Oximetry 96 General General Appearance: Alert, In No Apparent Distress and Cachectic Head Head Exam: Normal Inspection Eyes Eye exam: Normal Appearance ENT ENT Exam: Normal Exam, Normal Oropharynx and Normal External Ear Exam Neck Neck Exam: Normal Inspection and Full ROM Chest Chest Inspection: Normal Inspection Respiratory Respiratory Exam: Normal Lung Sounds Bilat Cardiovascular Cardiovascular Exam: Regular Rate and Normal Rhythm Abdominal Exam Abdominal Exam: Normal Inspection, Normal Bowel Sounds and Soft Rectal Rectal Exam: Deferred Extremeties Extremities Exam: Normal Inspection and Full ROM Back Back Exam: Normal Inspection and Full ROM Neurologic Neurological Exam: Alert and Oriented X3 Psychiatric Psychiatric Exam: Normal Affect and Normal Mood Skin Skin Exam: Warm, Dry, Intact and Normal Color MDM Additional Information Obtained Additional Findings: CACHEXIA,LETHARGIC,WEAKNESS,DIZZINESS Differential Diagnosis Differential Diagnosis: Dehydration Differential Diagnosis Comment: CACHEXIA,BREAST CANCER WITH METS,CHEMOTHERAPY COURSE Treatment Treatment: THE PATIENT DID SHOW SOME IMPROVEMENT IN SYMPTOMS AFTER NACL 1 LITER FLUID BOLUS. STIL WITH SOME DIZZINESS BUT CT OF BRAIN DID NOT SHOW AN ACUTE BLEED OR OTHER ABNORMALITY. WILL CONTACT THE HOSPITALIST [facility] TO ADMIT FOR FURTHER TREATMENT OF CACHEXIA,DEHYDRATION AND DIZZINESS. PATIENT IS ALSO TAKING CHEMOTHERAPY FOR BREAST CANCER AND WILL NEED ANTIEMITIC FOR NAUSEA. CONTACT WAS MADE WITH DR HUI AND HE ACCEPTED THE PATIENT. SHE WILL BE PLACED ON OSERVATION FOR HYPOTENSION,DEHYDRATION,HYPOGLYCEMIA. ROR Labs Reviewed Laboratory Results Reviewed?: Yes Result Diagrams: 01/03/22 10:25 01/03/22 10:25 Laboratory: WBC 4.9 X10^3/uL (3.6-10.0) 01/03/22 10:25 RBC 2.91 X10^6/uL (3.5-5.4) L 01/03/22 10:25 Hgb 10.7 g/dL (12.0-16.0) L 01/03/22 10:25 Hct 30.1 % (36.0-47.0) L 01/03/22 10:25 MCV 103.1 fL (80.0-100.0) H 01/03/22 10:25 MCH 36.8 pg (27.0-34.0) H 01/03/22 10:25 MCHC 35.6 g/dL (33.0-35.0) H 01/03/22 10:25 RDW 13.9 % (11.6-16.5) 01/03/22 10:25 Plt Count 232 X10^3/uL (150.0-450.0) 01/03/22 10:25 MPV 7.9 fL (7.4-11.0) 01/03/22 10:25 Neut % (Auto) 88.9 % (42.0-75.0) H 01/03/22 10:25 Lymph % (Auto) 5.3 % (21.0-51.0) L 01/03/22 10:25 [place] % (Auto) 5.4 % (0.0-13.0) 01/03/22 10:25 Eos % (Auto) 0.1 % (0.9-2.9) L 01/03/22 10:25 Baso % (Auto) 0.3 % (0.2-1.0) 01/03/22 10:25 Neut # (Auto) 4.4 x10^3/uL (2.2-4.8) 01/03/22 10:25 Lymph # (Auto) 0.3 X10^3/uL (1.3-2.9) L 01/03/22 10:25 [place] # (Auto) 0.3 x10^3/uL (0.3-0.8) 01/03/22 10:25 Eos # (Auto) 0.0 x10^3/uL (0.0-0.2) 01/03/22 10:25 Baso # (Auto) 0.0 X10^3/uL (0.0-0.1) 01/03/22 10:25 Absolute Nucleated RBC 0.8 /100WBC 01/03/22 10:25 Sodium 139 mmol/L (136-145) 01/03/22 10:25 Corrected Sodium TNP 01/03/22 10:25 Potassium 4.0 mmol/L (3.5-5.1) 01/03/22 10:25 Chloride 107 mmol/L (98-107) 01/03/22 10:25 Carbon Dioxide 17.5 mmol/L (21-32) L 01/03/22 10:25 BUN 19 mg/dL (7-18) H 01/03/22 10:25 Creatinine 1.41 mg/dL (0.55-1.02) H 01/03/22 10:25 Est GFR (MDRD) Af Amer 47 (>60) L 01/03/22 10:25 Est GFR (MDRD) Non-Af 38 (>60) L 01/03/22 10:25 Glucose 89 mg/dL (65-99) 01/03/22 10:25 Calcium 9.3 mg/dL (8.5-10.1) 01/03/22 10:25 Corrected Calcium TNP 01/03/22 10:25 Total Bilirubin 0.50 mg/dL (0.2-1.0) 01/03/22 10:25 AST 50 Units/L (15-37) H 01/03/22 10:25 ALT 31 Units/L (12-78) 01/03/22 10:25 Alkaline Phosphatase 94 Units/L (46-116) 01/03/22 10:25 Total Protein 6.3 g/dL (6.4-8.2) L 01/03/22 10:25 Albumin 3.5 g/dL (3.4-5.0) 01/03/22 10:25 Globulin 2.8 g/dL (2.5-4.5) 01/03/22 10:25 Albumin/Globulin Ratio 1.3 Ratio (1.1-2.1) 01/03/22 10:25 Specimen Type Catherized urine 01/03/22 11:00 Urine Color Yellow (YELLOW) 01/03/22 11:00 Urine Appearance Clear (CLEAR) 01/03/22 11:00 Urine pH 5.0 (5.0 - 8.0) 01/03/22 11:00 Ur Specific [place] 1.010 (1.000-1.030) 01/03/22 11:00 Urine Protein 2+ (NEGATIVE) 01/03/22 11:00 Urine Glucose (UA) Negative (NEGATIVE) 01/03/22 11:00 Urine Ketones Negative (NEGATIVE) 01/03/22 11:00 Urine Blood Negative (NEGATIVE) 01/03/22 11:00 Urine Nitrite Negative (NEGATIVE) 01/03/22 11:00 Urine Bilirubin Negative (NEGATIVE) 01/03/22 11:00 Urine Urobilinogen Normal (NORMAL) 01/03/22 11:00 Ur Leukocyte Esterase Negative (NEGATIVE) 01/03/22 11:00 Urine RBC 0-2 /HPF (0-3) 01/03/22 11:00 Urine WBC 0-2 /HPF (0-5) 01/03/22 11:00 Ur Squamous Epith Cells Rare /HPF (NEGATIVE) 01/03/22 11:00 Amorphous Sediment 1+ /HPF (NEGATIVE) 01/03/22 11:00 Urine Bacteria Trace /HPF (NEGATIVE) 01/03/22 11:00 Ur Culture Indicated? No/not indicated 01/03/22 11:00 Opioid Opioid Risk Tool Age (Marvin box if 16-45): No History of Preadolescent Sexual Abuse: No Total: 0 Total Score Risk Category: Low Risk Copyright: Alexander HORN predicting aberrant behaviors Diagnosis Discharge Problem: Hypoglycemia, Dehydration Hypotension Qualifiers: Qualified Code(s): I95.9 - Hypotension, unspecified Instructions Forms: Precautions for COVID19 [facility] Patient Portal Social Distancing
[2022-01-03] MEDS ORDERED: NS 1,000 ML IV 1,000 ML ONE (10:09)
[2022-01-03 10:41] LABS: BASOPHILS % (AUTO) 0.3 % (0.2-1.0); EOSINOPHILS % (AUTO) 0.1 % (0.9-2.9); HEMATOCRIT 30.1 % (36.0-47.0); HEMOGLOBIN 10.7 g/dL (12.0-16.0); LYMPHOCYTES # (AUTO) 0.3 X10^3/uL (1.3-2.9); LYMPHOCYTES % (AUTO) 5.3 % (21.0-51.0); MEAN CORPUSCULAR HEMOGLOBIN 36.8 pg (27.0-34.0); MEAN CORPUSCULAR HGB CONC 35.6 g/dL (33.0-35.0); MEAN CORPUSCULAR VOLUME 103.1 fL (80.0-100.0); MEAN PLATELET VOLUME 7.9 fL (7.4-11.0); MONOCYTES # (AUTO) 0.3 x10^3/uL (0.3-0.8); MONOCYTES % (AUTO) 5.4 % (0.0-13.0); NEUTROPHILS # (AUTO) 4.4 x10^3/uL (2.2-4.8); NEUTROPHILS % (AUTO) 88.9 % (42.0-75.0); RED BLOOD COUNT 2.91 X10^6/uL (3.5-5.4); RED CELL DISTRIBUTION WIDTH 13.9 % (11.6-16.5); WHITE BLOOD COUNT 4.9 X10^3/uL (3.6-10.0)
[2022-01-03 10:51] LABS: ALANINE AMINOTRANSFERASE 31 Units/L (12-78); ALBUMIN 3.5 g/dL (3.4-5.0); ALKALINE PHOSPHATASE 94 Units/L (46-116); ASPARTATE AMINO TRANSFERASE 50 Units/L (15-37); BLOOD UREA NITROGEN 19 mg/dL (7-18); CALCIUM 9.3 mg/dL (8.5-10.1); CARBON DIOXIDE 17.5 mmol/L (21-32); CHLORIDE 107 mmol/L (98-107); CREATININE 1.41 mg/dL (0.55-1.02); SODIUM 139 mmol/L (136-145); TOTAL PROTEIN 6.3 g/dL (6.4-8.2); eGFR NON BLACK RACES 38 (>60)
--- NOTE | 2022-01-03 11:08 | CT ---
BRAIN W/O CONCLINICAL INDICATION: DizzinessTECHNIQUE: Images were obtained through the head per standard CT protocol. Multiplanar reformatted images were generated from the CT dataset. Dose reduction techniques including Automated Exposure Control (AEC) and adjustment of mA and kV were utlized.COMPARISON:June 06, 2021FINDINGS:Diffuse patchy and confluent periventricular and subcortical hypoattenuation with associated volume loss . There is no evidence of acute infarction, intracranial hemorrhage, mass or mass effect, or abnormal extra-axial collection . The density of the larger dural venous sinuses is normal. Age-related, ex-vacuo dilatation of the ventricles and sulci . The skull base and calvarium are normal . The included paranasal sinuses and mastoid air cells are predominantly clear .IMPRESSION:1. No acute intracranial abnormality. Chronic microangiopathic changes and ex vacuo dilatation of the ventricles and sulci.[]Electronically signed by: CARMEN KIM (Jan 03, 2022 11:08:50)
[2022-01-03 11:12] LABS: BILIRUBIN,URINE NEGATIVE (NEGATIVE); BLOOD/HEMOGLOBIN,URINE NEGATIVE (NEGATIVE); GLUCOSE, URINE NEGATIVE (NEGATIVE); KETONES,URINE NEGATIVE (NEGATIVE); LEUKOCYTE ESTERASE ,URINE NEGATIVE (NEGATIVE); NITRITES,URINE NEGATIVE (NEGATIVE); PROTEIN,URINE 2+ (NEGATIVE); UROBILINOGEN,URINE NORMAL (NORMAL)
[2022-01-03 11:16] LABS: APPEARANCE,URINE CLEAR (CLEAR); BACTERIA,URINE TRACE /HPF (NEGATIVE); COLOR,URINE YELLOW (YELLOW); RBC,URINE 0-2 /HPF (0-3); SQUAMOUS EPITHELIAL CELL,UR RARE /HPF (NEGATIVE)
[2022-01-03] MEDS ORDERED: MYLICON TAB 80 MG CHEW PO ONE (12:25)
[2022-01-03] MEDS ORDERED: ZOFRAN INJ 4 MG VIAL IVP PRN (13:24)
[2022-01-03] MEDS: D5 NS 1,000 ML IV 1,000 ML IV SCH ×2 (14:40→22:05)
[2022-01-03] MEDS: ULTRAM PO SCH ×2 (15:42→22:05)
[2022-01-03] MEDS ORDERED: D50W ABBOJECT SYR IV ONE (20:25)
[2022-01-03] MEDS ORDERED: D50W ABBOJECT SYR ONE (20:30)
[2022-01-03] MEDS: CLARITIN PO SCH (20:40)
[2022-01-03] MEDS: ALPHAGAN P 0.15% OPHTH SOLN OP SCH (20:40)
[2022-01-03] MEDS: PriLOSEC PO SCH (20:40)
[2022-01-03] MEDS: KLONOPIN TAB 0.5 MG PO PRN (21:20)
[2022-01-04] MEDS: ULTRAM PO SCH ×3 (05:20→21:05)
[2022-01-04] MEDS: D5 NS 1,000 ML IV 1,000 ML IV SCH ×3 (05:23→21:05)
[2022-01-04 05:26] LABS: BASOPHILS % (AUTO) 0.8 % (0.2-1.0); EOSINOPHILS # (AUTO) 0.1 x10^3/uL (0.0-0.2); EOSINOPHILS % (AUTO) 1.1 % (0.9-2.9); HEMATOCRIT 27.5 % (36.0-47.0); HEMOGLOBIN 9.6 g/dL (12.0-16.0); LYMPHOCYTES # (AUTO) 0.3 X10^3/uL (1.3-2.9); LYMPHOCYTES % (AUTO) 5.7 % (21.0-51.0); MEAN CORPUSCULAR HEMOGLOBIN 36.1 pg (27.0-34.0); MEAN CORPUSCULAR HGB CONC 35.1 g/dL (33.0-35.0); MEAN PLATELET VOLUME 8.3 fL (7.4-11.0); MONOCYTES # (AUTO) 0.3 x10^3/uL (0.3-0.8); MONOCYTES % (AUTO) 5.3 % (0.0-13.0); NEUTROPHILS # (AUTO) 4.6 x10^3/uL (2.2-4.8); NEUTROPHILS % (AUTO) 87.1 % (42.0-75.0); RED BLOOD COUNT 2.67 X10^6/uL (3.5-5.4); RED CELL DISTRIBUTION WIDTH 14.6 % (11.6-16.5); WHITE BLOOD COUNT 5.3 X10^3/uL (3.6-10.0)
[2022-01-04 05:40] LABS: ALANINE AMINOTRANSFERASE 35 Units/L (12-78); ALBUMIN 2.9 g/dL (3.4-5.0); ALKALINE PHOSPHATASE 93 Units/L (46-116); ASPARTATE AMINO TRANSFERASE 51 Units/L (15-37); BLOOD UREA NITROGEN 12 mg/dL (7-18); CALCIUM 8.3 mg/dL (8.5-10.1); CARBON DIOXIDE 19.6 mmol/L (21-32); CHLORIDE 111 mmol/L (98-107); COR CA(FOR HYPOALB) 9.2 mg/dL (8.5-10.1); CREATININE 0.97 mg/dL (0.55-1.02); SODIUM 140 mmol/L (136-145); TOTAL PROTEIN 5.6 g/dL (6.4-8.2); eGFR NON BLACK RACES 59 (>60)
[2022-01-04] MEDS ORDERED: PALBOCICLIB 125 MG PO SCH (09:00)
[2022-01-04] MEDS: ALPHAGAN P 0.15% OPHTH SOLN OP SCH ×2 (09:17→20:20)
[2022-01-04] MEDS: CELEBREX PO SCH (09:18)
[2022-01-04] MEDS: LOMOTIL PO SCH (09:18)
[2022-01-04] MEDS: MICRO K EXTEN CAP 10 MEQ PO SCH (09:18)
[2022-01-04 09:19] VITALS: BMI 23.6
[2022-01-04] MEDS: XALATAN OP SCH (09:19)
[2022-01-04] MEDS: TAB-A-VITE PO SCH (09:19)
[2022-01-04] MEDS: SYNTHROID 75 mcg TAB PO SCH (09:19)
[2022-01-04] MEDS ORDERED: MILK OF MAGNESIA PO PRN (14:54)
--- NOTE | 2022-01-04 19:53 | DR.H&P ---
H&P - History & Physical for Day of: H&P Date: 01/03/22 - Chief Complaint Chief Complaint: LETHARGIC, WEAKNESS, DECREASED APPETITE - History of Present Illness History of Present Illness: IS A 76 YEAR OLD PATIENT OF AND SALEEM [place]. SHE PRESENTED TO THE ER WITH COMPLAINTS OF BEING LETHARGIC FOR THE PAST 3-4 DAYS. SHE REPORTS THAT SHE HAS HAD DECREASED APPETITE AND DECREASED ORAL INTAKE. HER SPOUSE REPORTS SHE BECAME UNRESPONSIVE AND HAD A BLOOD GLUCOSE LEVEL OF 28. THAT SHE HAS A PRESENT HISTORY OF BREAST CANCER WITH METS. SHE IS CURRENTLY ON CHEMOTHERAPY. SHE IS COMPLAINING OF CHRONIC LOW BACK PAIN. PAIN IS CURRENTLY RATED A 7/10. IT IS DESCRIBED DULL AND INTERMITTENT. HER PMH INCLUDES GLAUCOMA, HYPERTENSION, POTS, GERD, DM II, HYPOTHYROIDISM, BREAST CANCER, MASTECTOMY. ON ARRIVAL, VITALS WERE 92.7-111-26-99%-145/98. LABS WERE OBTAINED. WBC 4.9, RBC 2.91, HGB 10.7, HCT 30.1, SODIUM 139, POTASSIUM 4.0, CARBON DIOXIDE 17.5, BUN 19, CREATININE 1.41, GLUCOSE 89, CALCIUM 9.3, AST 50, ALT 31, TOTAL PROTEIN 6.3, ALBUMIN 3.5. URINALYSIS REVEALED: WBC 0-2, RBC 0-2, BACTERIA TRACE, LEUKOCYTES NEGATIVE, PROTEIN 2+. COVID-[address] WITH CONTRAST WAS OBTAINED AND REVEALED: 1. No acute intracranial abnormality. Chronic microangiopathic changes and ex vacuo dilatation of the ventricles and sulci. A BEARHUGGER AND WARM BLANKETS WERE APPLIED DUE TO LOW CORE TEMPERATURE. TEMPERATURE EVENTUALLY INCREASED TO 98.1. HOWEVER, WHILE IN THE ER, HER BLOOD PRESSURE DID DROP TO 84/60. SHE WAS GIVEN A NORMAL SALINE BOLUS. BLOOD PRESSURE ONLY INCREASED TO 90s/60s. SHE WAS ADMITTED TO THE HOSPITAL OBSERVATION STATUS FOR FURTHER EVALUATION AND TREATMENT OF HYPOTENSION, HYPOTHERMIA, HYPOGLYCEMIA, AND DEHYDRATION. SHE WAS STARTED ON D5NS AT 125ML/HR, OTBS ACHS, ZOFRAN 4MG IV Q8H PRN, AND HER HOME MEDICATIONS WERE RESUMED. WE PLANNED TO FOLLOW-UP WITH AM LABS AND CONTINUE TO MONITOR. TIME SPENT ON CLINICAL ASSESSMENT, REVIEWING LABS AND IMAGING, DECISION MAKING, AND DOCUMENTATION GREATER THAN 75 MINUTES. - Past Medical History Past Medical History: Diabetes, GERD, Hypertension, Hypothyroidism Additional Medical History: Breast cancer, pots - Past Surgical History Surgical History: Mastectomy - Family History Family Medical History: Diabetes Mellitus, Cancer, [place], Hypertension - Social History Does patient currently use any type of tobacco product: No Have you used tobacco products in the last 12 months: No Type of Tobacco Use: None Does any household member use tobacco: No Alcohol Use: None Drug Use: None - Medications Home Medications: codeine Allergy (Verified 06/06/21 15:33) latex Allergy (Verified 06/06/21 15:33) CONTINUE taking the following medications anastrozole 1 mg PO DAILY 01/03/22 [History] cyanocobalamin (vitamin B-12) 1,000 mcg SUBCUT Q2W 01/03/22 [History] cyclosporine [Restasis] 1 drp OPHTHALMIC (EYE) Q12H 01/03/22 [History] fluticasone propionate 2 spray INTRANASAL DAILY 01/03/22 [History] glimepiride 4 mg PO BID 01/03/22 [History] hydrocodone-acetaminophen 1 tab PO DAILY PRN 01/03/22 [History] lifitegrast [Xiidra] 1 drp OPHTHALMIC (EYE) BID 01/03/22 [History] megestrol 400 mg PO DAILY 01/03/22 [History] mupirocin 1 applic TOPICAL BID 01/03/22 [History] ondansetron 8 mg PO Q8H 01/03/22 [History] tizanidine 4 mg PO Q8H PRN 01/03/22 [History] - Review of Systems Constitutional: Weakness, Malaise Eyes: No Symptoms Reported ENT: No Symptoms Reported Respiratory: No Symptoms Reported Cardiovascular: No Symptoms Reported Gastrointestinal: No Symptoms Reported Genitourinary: No Symptoms Reported Musculoskeletal: Back Pain Skin: Bruising Neurological: See HPI, Weakness, Incoordination - Physical Exam Vital Signs: Temperature 98.7 F Pulse Rate 97 Respiratory Rate 23 Blood Pressure [Left Arm] 135/60 Blood Pressure [Right Arm] 103/56 Blood Pressure 129/76 O2 Sat by Pulse Oximetry 95 Oriented: Normal Eyes: Normal Ear: Normal Nose: Normal Throat: Normal Respiratory: Diminished Throughout Cardiovascular: Tachycardia : Normal Auscultation: Bowel Sounds: Normal Palpation: Normal Tenderness: Normal Skin: Decreased Turgur Musculoskeletal: Back:Lumbar, Tender Psychiatric: Normal Mood Description: Flat Affect: Flat Speech Pattern: Clear - Assessment/Plan (1) Acute dehydration Status: Acute Plan: ADMIT, D5NS AT 125ML/HR, OTBS ACHS, ZOFRAN 4MG IV Q8H PRN, AND HER HOME MEDICATIONS WERE RESUMED. (2) Hypotension Qualifiers: Hypotension type: unspecified hypotension type Qualified Code(s): I95.9 - Hypotension, unspecified Status: Acute (3) Hypoglycemia Status: Acute (4) Hypothermia Qualifiers: Encounter type: initial encounter Qualified Code(s): T68.XXXA - Hypothermia, initial encounter Status: Acute - Allergies Allergies/Adverse Reactions: Allergies Allergy/AdvReac Type Severity Reaction Status Date / Time codeine Allergy Verified 06/06/21 15:33 latex Allergy Verified 06/06/21 15:33
[2022-01-04] MEDS: CLARITIN PO SCH (20:20)
[2022-01-04] MEDS: PriLOSEC PO SCH (20:21)
[2022-01-04] MEDS: KLONOPIN TAB 0.5 MG PO PRN (20:22)
[2022-01-05] MEDS: D5 NS 1,000 ML IV 1,000 ML IV SCH ×3 (05:31→21:06)
[2022-01-05] MEDS: ULTRAM PO SCH ×3 (05:31→21:06)
[2022-01-05 06:30] LABS: BASOPHILS % (AUTO) 0.5 % (0.2-1.0); EOSINOPHILS # (AUTO) 0.1 x10^3/uL (0.0-0.2); HEMOGLOBIN 9.7 g/dL (12.0-16.0); LYMPHOCYTES # (AUTO) 0.5 X10^3/uL (1.3-2.9); MEAN CORPUSCULAR HEMOGLOBIN 36.6 pg (27.0-34.0); MEAN PLATELET VOLUME 7.6 fL (7.4-11.0); MONOCYTES # (AUTO) 0.5 x10^3/uL (0.3-0.8); NEUTROPHILS # (AUTO) 4.5 x10^3/uL (2.2-4.8); RED BLOOD COUNT 2.64 X10^6/uL (3.5-5.4)
[2022-01-05 06:43] LABS: HEMATOCRIT 27.2 % (36.0-47.0); LYMPHOCYTES % (AUTO) 8.7 % (21.0-51.0); MEAN CORPUSCULAR HGB CONC 35.5 g/dL (33.0-35.0); MONOCYTES % (AUTO) 8.4 % (0.0-13.0); NEUTROPHILS % (AUTO) 80.4 % (42.0-75.0); RED CELL DISTRIBUTION WIDTH 14.3 % (11.6-16.5); WHITE BLOOD COUNT 5.6 X10^3/uL (3.6-10.0)
[2022-01-05 06:47] LABS: ALANINE AMINOTRANSFERASE 40 Units/L (12-78); ALBUMIN 2.8 g/dL (3.4-5.0); ALKALINE PHOSPHATASE 119 Units/L (46-116); ASPARTATE AMINO TRANSFERASE 69 Units/L (15-37); BLOOD UREA NITROGEN 11 mg/dL (7-18); CALCIUM 8.3 mg/dL (8.5-10.1); CARBON DIOXIDE 20.2 mmol/L (21-32); CHLORIDE 111 mmol/L (98-107); COR CA(FOR HYPOALB) 9.3 mg/dL (8.5-10.1); COR NA(FOR HYPERGLY) 142 mmol/L (136-145); SODIUM 141 mmol/L (136-145); TOTAL PROTEIN 5.6 g/dL (6.4-8.2); eGFR NON BLACK RACES 57 (>60)
[2022-01-05 08:20] LABS: BAND NEUTROPHILS % 3 % (0-10)
[2022-01-05 08:21] LABS: METAMYELOCYTES % 1; PLATELET MORPHOLOGY COMMENT NORMAL (NORMAL)
[2022-01-05] MEDS: CELEBREX PO SCH (08:33)
[2022-01-05] MEDS: SYNTHROID 75 mcg TAB PO SCH (08:34)
[2022-01-05] MEDS: TAB-A-VITE PO SCH (08:34)
[2022-01-05] MEDS: LOMOTIL PO SCH (08:34)
[2022-01-05] MEDS: MICRO K EXTEN CAP 10 MEQ PO SCH (08:34)
[2022-01-05] MEDS: XALATAN OP SCH (08:35)
[2022-01-05] MEDS: ALPHAGAN P 0.15% OPHTH SOLN OP SCH ×2 (08:35→20:37)
--- NOTE | 2022-01-05 17:47 | PCM.PROG ---
Progress Note - Progress Note for Day of Date of Exam: 01/05/22 - Subjective Subjective: WAS ADMITTED FOR OBSERVATION STATUS FOR TREATMENT OF ACUTE DEHYDRATION, HYPOTENSION, HYPOGLYCEMIA, AND HYPOTHERMIA. CORE TEMPERATURE HAS RETURNED TO NORMAL. SHE HAS A PRESENT HX OF BREAST CANCER WITH METS. TODAY, SHE IS LYING IN BED WITH EYES CLOSED ON MORNING ROUNDS. SHE AWAKENS TO VERBAL STIMULI, BUT QUICKLY FALLS BACK TO SLEEP. NURSING STAFF REPORTS THAT SHE WAS AWAKE MOST OF THE NIGHT. STAFF GOT PATIENT OUT OF BED THROUGHOUT THE NIGHT, BUT SHE WAS WEAK AND REQUIRED MODERATE ASSISTANCE FOR AMBULATION. ON EXAMINATION, HEART IS REGULAR IN RATE AND RHYTYHM. BILATERAL LUNGS ARE NOTED WITH DIMINISHED LUNG SOUNDS THROUGHOUT. ABDOMEN IS ROUND, SOFT, AND NON-TENDER WITH NORMAL BOWEL SOUNDS NOTED IN ALL QUADRANTS. TRACE EDEMA NOTED TO LOWER EXTREMITIES. [place] CATHETER NOTED TO BEDSIDE DRAINAGE. HER VITALS THIS MORNING ARE: 97.8-92-21-94%-131/83. LABS WERE OBTAINED. WBC 5.6, RBC 2.64, HGB 9.7, HCT 27.2, SODIUM 141, POTASSIUM 3.9, CHLORIDE 111, CARBON DIOXIDE 20.2, BUN 11, CREATININE 1.00, GLUCOSE 130, CALCIUM 8.3, TOTAL BILI 0.30, AST 69, ALT 40, ALK PHOS 119, TOTAL PROTEIN 5.6, ALBUMIN 2.8. SHE IS CURRENTLY RECEIVING D5NS AT 125ML/HR, OTBS ACHS, ZOFRAN 4MG IV Q8H PRN, AND HER HOME MEDICATIONS WERE RESUMED. WE WILL CONTINUE WITH CURRENT PLAN OF CARE TODAY. WE WILL HAVE PHYSICAL THERAPY EVALUATE AND WORK WITH PATIENT. OTHERWISE, WE WILL FOLLOW-UP WITH AM LABS AND CONTINUE TO MONITOR. TIME SPENT ON CLINICAL ASSESSMENT, REVIEWING LABS AND IMAGING, DECISION MAKING, AND DOCUMENTATION GREATER THAN 45 MINUTES. - Past Medical Family Social History Past Med/Fam/Surg Hx: No changes since H&P Allergies: Allergies codeine Allergy (Verified 06/06/21 15:33) latex Allergy (Verified 06/06/21 15:33) - Review of Systems ROS: No change since H&P - Vital Signs and I&O's Vital Signs: Temperature 97.4 F Pulse Rate 81 Respiratory Rate 17 Blood Pressure [Left Arm] 135/60 Blood Pressure [Right Arm] 103/56 Blood Pressure 112/59 O2 Sat by Pulse Oximetry 95 Intake and Output: Intake & Output 01/03/22 01/04/22 01/05/22 01/06/22 11:59 11:59 11:59 11:59 Intake Total 3513 / 3513 4206 / 4206 1356 / 1356 Output Total 2900 / 2900 3650 / 3650 1000 / 1000 Balance 613 / 613 556 / 556 356 / 356 - Physical Exam Oriented: Normal Eyes: Normal Ear: Normal Nose: Normal Throat: Normal Respiratory: Generalized, Diminished Cardiovascular: Normal : Normal Auscultation: Bowel Sounds: Normal Palpation: Normal Tenderness: Normal Skin: Decreased Turgur Musculoskeletal: Back:Lumbar, Tender Psychiatric: Normal Mood Description: Flat Affect: Flat Speech Pattern: Clear, Appropriate - Laboratory and Diagnostics Result Diagrams: 01/05/22 06:20 01/05/22 06:20 Labs: Laboratory WBC 5.6 X10^3/uL (3.6-10.0) 01/05/22 06:20 RBC 2.64 X10^6/uL (3.5-5.4) L 01/05/22 06:20 Hgb 9.7 g/dL (12.0-16.0) L 01/05/22 06:20 Hct 27.2 % (36.0-47.0) L 01/05/22 06:20 MCV 103.0 fL (80.0-100.0) H 01/05/22 06:20 MCH 36.6 pg (27.0-34.0) H 01/05/22 06:20 MCHC 35.5 g/dL (33.0-35.0) H 01/05/22 06:20 RDW 14.3 % (11.6-16.5) 01/05/22 06:20 Plt Count 235 X10^3/uL (150.0-450.0) 01/05/22 06:20 Plt Count Comment Adequate (ADEQUATE) 01/05/22 06:20 MPV 7.6 fL (7.4-11.0) 01/05/22 06:20 Neut % (Auto) 80.4 % (42.0-75.0) H 01/05/22 06:20 Lymph % (Auto) 8.7 % (21.0-51.0) L 01/05/22 06:20 [place] % (Auto) 8.4 % (0.0-13.0) 01/05/22 06:20 Eos % (Auto) 2.0 % (0.9-2.9) 01/05/22 06:20 Baso % (Auto) 0.5 % (0.2-1.0) 01/05/22 06:20 Neut # (Auto) 4.5 x10^3/uL (2.2-4.8) 01/05/22 06:20 Lymph # (Auto) 0.5 X10^3/uL (1.3-2.9) L 01/05/22 06:20 [place] # (Auto) 0.5 x10^3/uL (0.3-0.8) 01/05/22 06:20 Eos # (Auto) 0.1 x10^3/uL (0.0-0.2) 01/05/22 06:20 Baso # (Auto) 0.0 X10^3/uL (0.0-0.1) 01/05/22 06:20 Absolute Nucleated RBC 1.5 /100WBC 01/05/22 06:20 Total Counted 100 01/05/22 06:20 Neutrophils % (Manual) 81 % (39-76) H 01/05/22 06:20 Band Neutrophils % 3 % (0-10) 01/05/22 06:20 Lymphocytes % (Manual) 8 % (13-43) L 01/05/22 06:20 Monocytes % (Manual) 5 % (4-9) 01/05/22 06:20 Eosinophils % (Manual) 2 % (0-6) 01/05/22 06:20 Metamyelocytes % 1 01/05/22 06:20 Plt Morphology Comment Normal (NORMAL) 01/05/22 06:20 RBC Morphology Abnormal (NORMAL) A 01/05/22 06:20 Macrocytosis Slight A 01/05/22 06:20 Acanthocytes (Spur) Present 01/05/22 06:20 Sodium 141 mmol/L (136-145) 01/05/22 06:20 Corrected Sodium 142 mmol/L (136-145) 01/05/22 06:20 Potassium 3.9 mmol/L (3.5-5.1) 01/05/22 06:20 Chloride 111 mmol/L (98-107) H 01/05/22 06:20 Carbon Dioxide 20.2 mmol/L (21-32) L 01/05/22 06:20 BUN 11 mg/dL (7-18) 01/05/22 06:20 Creatinine 1.00 mg/dL (0.55-1.02) 01/05/22 06:20 Est GFR (MDRD) Af Amer > 60 (>60) 01/05/22 06:20 Est GFR (MDRD) Non-Af 57 (>60) L 01/05/22 06:20 Glucose 130 mg/dL (65-99) H 01/05/22 06:20 POC Glucose (mg/dL) 131 mg/dL (65-99) H 01/05/22 16:27 Calcium 8.3 mg/dL (8.5-10.1) L 01/05/22 06:20 Corrected Calcium 9.3 mg/dL (8.5-10.1) 01/05/22 06:20 Total Bilirubin 0.30 mg/dL (0.2-1.0) 01/05/22 06:20 AST 69 Units/L (15-37) H 01/05/22 06:20 ALT 40 Units/L (12-78) 01/05/22 06:20 Alkaline Phosphatase 119 Units/L (46-116) H 01/05/22 06:20 Total Protein 5.6 g/dL (6.4-8.2) L 01/05/22 06:20 Albumin 2.8 g/dL (3.4-5.0) L 01/05/22 06:20 Globulin 2.8 g/dL (2.5-4.5) 01/05/22 06:20 Albumin/Globulin Ratio 1.0 Ratio (1.1-2.1) L 01/05/22 06:20 Specimen Type Catherized urine 01/03/22 11:00 Urine Color Yellow (YELLOW) 01/03/22 11:00 Urine Appearance Clear (CLEAR) 01/03/22 11:00 Urine pH 5.0 (5.0 - 8.0) 01/03/22 11:00 Ur Specific [place] 1.010 (1.000-1.030) 01/03/22 11:00 Urine Protein 2+ (NEGATIVE) 01/03/22 11:00 Urine Glucose (UA) Negative (NEGATIVE) 01/03/22 11:00 Urine Ketones Negative (NEGATIVE) 01/03/22 11:00 Urine Blood Negative (NEGATIVE) 01/03/22 11:00 Urine Nitrite Negative (NEGATIVE) 01/03/22 11:00 Urine Bilirubin Negative (NEGATIVE) 01/03/22 11:00 Urine Urobilinogen Normal (NORMAL) 01/03/22 11:00 Ur Leukocyte Esterase Negative (NEGATIVE) 01/03/22 11:00 Urine RBC 0-2 /HPF (0-3) 01/03/22 11:00 Urine WBC 0-2 /HPF (0-5) 01/03/22 11:00 Ur Squamous Epith Cells Rare /HPF (NEGATIVE) 01/03/22 11:00 Amorphous Sediment 1+ /HPF (NEGATIVE) 01/03/22 11:00 Urine Bacteria Trace /HPF (NEGATIVE) 01/03/22 11:00 Ur Culture Indicated? No/not indicated 01/03/22 11:00 SARS-CoV-2 (PCR) Negative (NEGATIVE) 01/03/22 17:20 - Plan (1) Acute dehydration Status: Acute Plan: D5NS AT 125ML/HR, OTBS ACHS, ZOFRAN 4MG IV Q8H PRN, AND HER HOME MEDICATIONS WERE RESUMED. (2) Hypotension Status: Acute Qualifiers: Hypotension type: unspecified hypotension type Qualified Code(s): I95.9 - Hypotension, unspecified (3) Hypoglycemia Status: Acute (4) Hypothermia Status: Acute Qualifiers: Encounter type: initial encounter Qualified Code(s): T68.XXXA - Hypothermia, initial encounter
--- NOTE | 2022-01-05 19:45 | PCM.PROG ---
Progress Note - Progress Note for Day of Date of Exam: 01/04/22 - Subjective Subjective: WAS ADMITTED FOR OBSERVATION STATUS FOR TREATMENT OF ACUTE DEHYDRATION, HYPOTENSION, HYPOGLYCEMIA, AND HYPOTHERMIA. CORE TEMPERATURE AND GLUCOSE LEVELS HAVE RETURNED TO NORMAL. SHE HAS A PRESENT HX OF BREAST CANCER WITH METS. TODAY, SHE IS LYING IN BED WITH EYES CLOSED ON MORNING ROUNDS. SHE AWAKENS TO VERBAL STIMULI, BUT QUICKLY FALLS BACK TO SLEEP. NURSING STAFF REPORTS THAT SHE DIDNT SLEEP WELL THROUGHOUT THE NIGHT. ON EXAMINATION, HEART IS REGULAR IN RATE AND RHYTYHM. BILATERAL LUNGS ARE NOTED WITH DIMINISHED LUNG SOUNDS THROUGHOUT. ABDOMEN IS ROUND, SOFT, AND NON-TENDER WITH NORMAL BOWEL SOUNDS NOTED IN ALL QUADRANTS. TRACE EDEMA NOTED TO LOWER EXTREMITIES. [place] CATHETER NOTED TO BEDSIDE DRAINAGE. HER VITALS THIS MORNING ARE: 98.7-100-21-97%-133/73. LABS WERE OBTAINED. WBC 5.3, RBC 2.67, HGB 9.6, HCT 27.5, SODIUM 140, POTASSIUM 4.1, CHLORIDE 111, CARBON DIOXIDE 19.6, BUN 12, CREATININE 0.97, BUN 12, CREATININE 0.97, GLCUOSE 84, CALCIUM 8.3, AST 51, ALT 35, ALK PHOS 93, TOTAL PROTEIN 5.6, ALBUMIN 2.9. SHE IS CURRENTLY RECEIVING D5NS AT 125ML/HR, OTBS ACHS, ZOFRAN 4MG IV Q8H PRN, AND HER HOME MEDICATIONS WERE RESUMED. WE WILL CONTINUE WITH CURRENT PLAN OF CARE TODAY. WE WILL HAVE PHYSICAL THERAPY EVALUATE AND WORK WITH PATIENT. OTHERWISE, WE WILL FOLLOW-UP WITH AM LABS AND CONTINUE TO MONITOR. TIME SPENT ON CLINICAL ASSESSMENT, REVIEWING LABS AND IMAGING, DECISION MAKING, AND DOCUMENTATION GREATER THAN 45 MINUTES. - Past Medical Family Social History Past Med/Fam/Surg Hx: No changes since H&P Allergies: Allergies codeine Allergy (Verified 06/06/21 15:33) latex Allergy (Verified 06/06/21 15:33) - Review of Systems ROS: No change since H&P - Vital Signs and I&O's Vital Signs: Temperature 97.4 F Pulse Rate 97 Respiratory Rate 16 Blood Pressure [Left Arm] 135/60 Blood Pressure [Right Arm] 103/56 Blood Pressure 160/80 O2 Sat by Pulse Oximetry 95 Intake and Output: Intake & Output 01/03/22 01/04/22 01/05/2201/06/22 11:59 11:59 11:59 11:59 Intake Total 3513 / 3513 4206 / 4206 1356 / 1356 Output Total 2900 / 2900 3650 / 3650 1000 / 1000 Balance 613 / 613 556 / 556 356 / 356 - Physical Exam Oriented: Normal Eyes: Normal Ear: Normal Nose: Normal Throat: Normal Respiratory: Generalized, Diminished Cardiovascular: Normal : Normal Auscultation: Bowel Sounds: Normal Tenderness: Normal Skin: Decreased Turgur Musculoskeletal: Back:Lumbar, Tender Psychiatric: Normal Mood Description: Flat Affect: Flat Speech Pattern: Clear, Appropriate - Laboratory and Diagnostics Result Diagrams: 01/05/22 06:20 01/05/22 06:20 Labs: Laboratory WBC 5.6 X10^3/uL (3.6-10.0) 01/05/22 06:20 RBC 2.64 X10^6/uL (3.5-5.4) L 01/05/22 06:20 Hgb 9.7 g/dL (12.0-16.0) L 01/05/22 06:20 Hct 27.2 % (36.0-47.0) L 01/05/22 06:20 MCV 103.0 fL (80.0-100.0) H 01/05/22 06:20 MCH 36.6 pg (27.0-34.0) H 01/05/22 06:20 MCHC 35.5 g/dL (33.0-35.0) H 01/05/22 06:20 RDW 14.3 % (11.6-16.5) 01/05/22 06:20 Plt Count 235 X10^3/uL (150.0-450.0) 01/05/22 06:20 Plt Count Comment Adequate (ADEQUATE) 01/05/22 06:20 MPV 7.6 fL (7.4-11.0) 01/05/22 06:20 Neut % (Auto) 80.4 % (42.0-75.0) H 01/05/22 06:20 Lymph % (Auto) 8.7 % (21.0-51.0) L 01/05/22 06:20 [place] % (Auto) 8.4 % (0.0-13.0) 01/05/22 06:20 Eos % (Auto) 2.0 % (0.9-2.9) 01/05/22 06:20 Baso % (Auto) 0.5 % (0.2-1.0) 01/05/22 06:20 Neut # (Auto) 4.5 x10^3/uL (2.2-4.8) 01/05/22 06:20 Lymph # (Auto) 0.5 X10^3/uL (1.3-2.9) L 01/05/22 06:20 [place] # (Auto) 0.5 x10^3/uL (0.3-0.8) 01/05/22 06:20 Eos # (Auto) 0.1 x10^3/uL (0.0-0.2) 01/05/22 06:20 Baso # (Auto) 0.0 X10^3/uL (0.0-0.1) 01/05/22 06:20 Absolute Nucleated RBC 1.5 /100WBC 01/05/22 06:20 Total Counted 100 01/05/22 06:20 Neutrophils % (Manual) 81 % (39-76) H 01/05/22 06:20 Band Neutrophils % 3 % (0-10) 01/05/22 06:20 Lymphocytes % (Manual) 8 % (13-43) L 01/05/22 06:20 Monocytes % (Manual) 5 % (4-9) 01/05/22 06:20 Eosinophils % (Manual) 2 % (0-6) 01/05/22 06:20 Metamyelocytes % 1 01/05/22 06:20 Plt Morphology Comment Normal (NORMAL) 01/05/22 06:20 RBC Morphology Abnormal (NORMAL) A 01/05/22 06:20 Macrocytosis Slight A 01/05/22 06:20 Acanthocytes (Spur) Present 01/05/22 06:20 Sodium 141 mmol/L (136-145) 01/05/22 06:20 Corrected Sodium 142 mmol/L (136-145) 01/05/22 06:20 Potassium 3.9 mmol/L (3.5-5.1) 01/05/22 06:20 Chloride 111 mmol/L (98-107) H 01/05/22 06:20 Carbon Dioxide 20.2 mmol/L (21-32) L 01/05/22 06:20 BUN 11 mg/dL (7-18) 01/05/22 06:20 Creatinine 1.00 mg/dL (0.55-1.02) 01/05/22 06:20 Est GFR (MDRD) Af Amer > 60 (>60) 01/05/22 06:20 Est GFR (MDRD) Non-Af 57 (>60) L 01/05/22 06:20 Glucose 130 mg/dL (65-99) H 01/05/22 06:20 POC Glucose (mg/dL) 172 mg/dL (65-99) H 01/05/22 19:31 Calcium 8.3 mg/dL (8.5-10.1) L 01/05/22 06:20 Corrected Calcium 9.3 mg/dL (8.5-10.1) 01/05/22 06:20 Total Bilirubin 0.30 mg/dL (0.2-1.0) 01/05/22 06:20 AST 69 Units/L (15-37) H 01/05/22 06:20 ALT 40 Units/L (12-78) 01/05/22 06:20 Alkaline Phosphatase 119 Units/L (46-116) H 01/05/22 06:20 Total Protein 5.6 g/dL (6.4-8.2) L 01/05/22 06:20 Albumin 2.8 g/dL (3.4-5.0) L 01/05/22 06:20 Globulin 2.8 g/dL (2.5-4.5) 01/05/22 06:20 Albumin/Globulin Ratio 1.0 Ratio (1.1-2.1) L 01/05/22 06:20 Specimen Type Catherized urine 01/03/22 11:00 Urine Color Yellow (YELLOW) 01/03/22 11:00 Urine Appearance Clear (CLEAR) 01/03/22 11:00 Urine pH 5.0 (5.0 - 8.0) 01/03/22 11:00 Ur Specific [place] 1.010 (1.000-1.030) 01/03/22 11:00 Urine Protein 2+ (NEGATIVE) 01/03/22 11:00 Urine Glucose (UA) Negative (NEGATIVE) 01/03/22 11:00 Urine Ketones Negative (NEGATIVE) 01/03/22 11:00 Urine Blood Negative (NEGATIVE) 01/03/22 11:00 Urine Nitrite Negative (NEGATIVE) 01/03/22 11:00 Urine Bilirubin Negative (NEGATIVE) 01/03/22 11:00 Urine Urobilinogen Normal (NORMAL) 01/03/22 11:00 Ur Leukocyte Esterase Negative (NEGATIVE) 01/03/22 11:00 Urine RBC 0-2 /HPF (0-3) 01/03/22 11:00 Urine WBC 0-2 /HPF (0-5) 01/03/22 11:00 Ur Squamous Epith Cells Rare /HPF (NEGATIVE) 01/03/22 11:00 Amorphous Sediment 1+ /HPF (NEGATIVE) 01/03/22 11:00 Urine Bacteria Trace /HPF (NEGATIVE) 01/03/22 11:00 Ur Culture Indicated? No/not indicated 01/03/22 11:00 SARS-CoV-2 (PCR) Negative (NEGATIVE) 01/03/22 17:20 - Plan (1) Acute dehydration Status: Acute Plan: D5NS AT 125ML/HR, OTBS ACHS, ZOFRAN 4MG IV Q8H PRN, AND HER HOME MEDICATIONS WERE RESUMED. (2) Hypotension Status: Acute Qualifiers: Hypotension type: unspecified hypotension type Qualified Code(s): I95.9 - H ypotension, unspecified (3) Hypoglycemia Status: Acute (4) Hypothermia Status: Acute Qualifiers: Encounter type: initial encounter Qualified Code(s): T68.XXXA - Hypothermia, initial encounter
[2022-01-05] MEDS ORDERED: RESTORIL CAP 15 MG PO PRN (19:47)
[2022-01-05] MEDS: PriLOSEC PO SCH (20:37)
[2022-01-05] MEDS: CLARITIN PO SCH (20:37)
[2022-01-06] MEDS ORDERED: TYLENOL 325 MG TAB PO PRN (02:03)
[2022-01-06] MEDS ORDERED: TYLENOL 325 MG TAB PO ONE (02:07)
[2022-01-06 04:54] LABS: BASOPHILS % (AUTO) 0.5 % (0.2-1.0); EOSINOPHILS # (AUTO) 0.1 x10^3/uL (0.0-0.2); EOSINOPHILS % (AUTO) 2.6 % (0.9-2.9); HEMATOCRIT 26.7 % (36.0-47.0); HEMOGLOBIN 9.4 g/dL (12.0-16.0); LYMPHOCYTES # (AUTO) 0.5 X10^3/uL (1.3-2.9); LYMPHOCYTES % (AUTO) 9.4 % (21.0-51.0); MEAN CORPUSCULAR HEMOGLOBIN 36.3 pg (27.0-34.0); MEAN CORPUSCULAR HGB CONC 35.2 g/dL (33.0-35.0); MEAN PLATELET VOLUME 8.3 fL (7.4-11.0); MONOCYTES # (AUTO) 0.5 x10^3/uL (0.3-0.8); MONOCYTES % (AUTO) 9.1 % (0.0-13.0); NEUTROPHILS # (AUTO) 4.3 x10^3/uL (2.2-4.8); NEUTROPHILS % (AUTO) 78.4 % (42.0-75.0); RED BLOOD COUNT 2.59 X10^6/uL (3.5-5.4); RED CELL DISTRIBUTION WIDTH 14.5 % (11.6-16.5); WHITE BLOOD COUNT 5.4 X10^3/uL (3.6-10.0)
[2022-01-06 05:08] LABS: ALANINE AMINOTRANSFERASE 51 Units/L (12-78); ALBUMIN 2.8 g/dL (3.4-5.0); ALKALINE PHOSPHATASE 151 Units/L (46-116); ASPARTATE AMINO TRANSFERASE 95 Units/L (15-37); BLOOD UREA NITROGEN 11 mg/dL (7-18); CALCIUM 8.7 mg/dL (8.5-10.1); CARBON DIOXIDE 19.8 mmol/L (21-32); CHLORIDE 109 mmol/L (98-107); COR CA(FOR HYPOALB) 9.7 mg/dL (8.5-10.1); CREATININE 1.09 mg/dL (0.55-1.02); SODIUM 139 mmol/L (136-145); TOTAL PROTEIN 5.8 g/dL (6.4-8.2); eGFR NON BLACK RACES 52 (>60)
[2022-01-06] MEDS ORDERED: D50W ABBOJECT SYR IV ONE (05:32)
[2022-01-06] MEDS: ULTRAM PO SCH ×2 (05:40→13:57)
[2022-01-06] MEDS: D5 NS 1,000 ML IV 1,000 ML IV SCH ×2 (05:40→13:59)
[2022-01-06] MEDS ORDERED: D50W ABBOJECT SYR ONE (05:44)
[2022-01-06 06:13] LABS: BAND NEUTROPHILS % 3 % (0-10); METAMYELOCYTES % 1; MYELOCYTES % 1
[2022-01-06 06:14] LABS: HOWELL-JOLLY BODIES PRESENT; PLATELET MORPHOLOGY COMMENT NORMAL (NORMAL); SPHEROCYTES PRESENT
[2022-01-06] MEDS ORDERED: GLUTOSE 15 GEL ORAL PO ONE (06:21)
[2022-01-06] MEDS ORDERED: GLUTOSE 15 GEL ORAL PO PRN (06:22)
[2022-01-06] MEDS: ALPHAGAN P 0.15% OPHTH SOLN OP SCH (08:24)
[2022-01-06] MEDS: CELEBREX PO SCH (08:25)
[2022-01-06] MEDS: XALATAN OP SCH (08:25)
[2022-01-06] MEDS: LOMOTIL PO SCH (08:26)
[2022-01-06] MEDS: TAB-A-VITE PO SCH (08:26)
[2022-01-06] MEDS: SYNTHROID 75 mcg TAB PO SCH (08:26)
[2022-01-06] MEDS: MICRO K EXTEN CAP 10 MEQ PO SCH (08:26)
[2022-01-06 14:10] VITALS: BP 131/74
--- NOTE | 2022-02-06 13:06 | PCM.DCPLAN ---
Discharge Plan - Discharge Plan Hospital Course: Admit date 01/03/22 Discharge date 01/06/22 DOS 01/06/22 Admit Diagnosis(1) Acute dehydration (2) Hypotension (3) Hypoglycemia (4) Hypothermia Discharge Diagnosis SAME Hospital Course IS A 76 YEAR OLD PATIENT WHO WAS ADMITTED DUE TO [facility]. [facility] FOR THE PAST 3-4 DAYS. FAMILY REPORTS THAT SHE HAS HAD DECREASED APPETITE AND DECREASED ORAL INTAKE. HER SPOUSE REPORTS SHE BECAME UNRESPONSIVE AND HAD A BLOOD GLUCOSE LEVEL OF 28. THAT SHE HAS A PRESENT HISTORY OF BREAST CANCER WITH METS. SHE IS CURRENTLY ON CHEMOTHERAPY. SHE IS COMPLAINING OF CHRONIC LOW BACK PAIN. PAIN IS CURRENTLY RATED A 7/10. IT IS DESCRIBED DUL L AND INTERMITTENT. HER PMH INCLUDES GLAUCOMA, HYPERTENSION, POTS, GERD, DM II, HYPOTHYROIDISM, BREAST CANCER, MASTECTOMY. BRAIN CT WITH CONTRAST WAS OBTAINED AND REVEALED: 1. No acute intracranial abnormality. Chronic microangiopathic changes and ex vacuo dilatation of the ventricles and sulci. A BEARHUGGER AND WARM BLANKETS WERE APPLIED DUE TO LOW CORE TEMPERATURE. TEMPERATURE EVENTUALLY INCREASED TO 98.1. HOWEVER, WHILE IN THE ER, HER BLOOD PRESSURE DID DROP TO 84/60. SHE WAS GIVEN A NORMAL SALINE BOLUS. BLOOD PRESSURE ONLY INCREASED TO 90s/60s. SHE WAS ADMITTED TO THE HOSPITAL OBSERVATION STATUS FOR FURTHER EVALUATION AND TREATMENT OF HYPOTENSION, HYPOTHERMIA, HYPOGLYCEMIA, AND DEHYDRATION. SHE WAS STARTED ON D5NS AT 125ML/HR, OTBS ACHS, ZOFRAN 4MG IV Q8H PRN, AND HER HOME MEDICATIONS WERE RESUMED. LABS IMPROVED TO BASELINE. IMAGING WITHOUT ACUTE FINDINGS, PATIENT WAS TREATED WITH IV ABX AND FLUIDS. MENTATION RETURNED TO BASELINE. PATIENT WAS DISCHARGED HOME TO FOLLOW UP WITH PCP IN 1 WEEK. Greater than 35 mins spent on discharge. Disposition: 06 HOME HEALTH SERVICE Condition: Stable Health Concerns: Post Hospitalization: new medications and changes needed to prevent readmission or further decline. Pt educated and given instructions on all concerns. Care Plan Goals: Problem: Fluid Volume Deficit Goal: Maintain/Improved Adequate hydration. Instructions: Follow provided instructions. Follow up with primary physician as directed. Contact primary care physician or report to the closest Emergency Room if condition worsens. Plan of Treatment: Continue with present treatment and follow up plan. Pt is to keep follow up appointment as instructed and take medications as ordered. Prescriptions: Continued Alphagan P 0.1 % drops 2 drp OPHTHALMIC (EYE) BID anastrozole 1 mg Tablet 1 mg PO DAILY celecoxib 200 mg capsule 200 mg PO DAILY Centrum Silver Women 1 EACH tablet 1 each PO DAILY cyanocobalamin (vitamin B-12) 1,000 mcg/mL Solution 1,000 mcg SUBCUT Q2W cyclosporine [Restasis] 0.05 % dropperette 1 drp AFFEYE BID diltiazem HCl 120 mg capsule,extended release 24hr 120 mg PO DAILY diphenoxylate-atropine 2.5-0.025 mg tablet 1 tab PO TID PRN fluticasone propionate 50 mcg/actuation [place],Suspension 2 spray INTRANASAL DAILY furosemide 40 mg tablet 40 mg PO DAILY PRN (Reason: swelling) hydrocodone-acetaminophen 5-325 mg Tablet 1 tab PO DAILY PRN (Reason: Pain) latanoprost 0.005 % drops 1 drp OPHTHALMIC (EYE) HS loratadine [Non-Drowsy Allergy] 10 MG tablet 10 mg PO DAILY losartan 25 mg tablet 25 mg PO QHS megestrol 400 mg/10 mL (10 mL) Suspension 400 mg PO DAILY mupirocin 2 % Ointment 1 applic TOPICAL BID omeprazole 20 mg capsule,delayed release(DR/EC) 20 mg PO BID ondansetron 8 mg Tablet,Disintegrating 8 mg PO Q8H potassium chloride 10 MEQ tablet extended release 10 meq PO DAILY tizanidine 4 mg Tablet 4 mg PO Q8H PRN Xiidra 5 % Dropperette 1 drp OPHTHALMIC (EYE) BID Discontinued glimepiride 4 mg Tablet 4 mg PO BID No Action clonazepam 1 mg tablet 1 mg PO DAILY PRN ergocalciferol (vitamin D2) [Vitamin D2] 1,250 mcg (50,000 unit) Capsule 1,250 mcg PO DAILY levothyroxine 75 mcg tablet 75 mcg PO DAILY - Follow ups/Referrals Follow ups/Referrals: [facility] [STAFF PHYSICIAN] - SALEEM STRATTON [Nurse Practitioner] - 01/14/22 2:30 pm - Instructions Instructions: Fall Prevention in the Home, Adult, [id number], Hypotension, [id number], Abdominal Pain, Adult, [id number], Type 2 Diabetes Mellitus, Self-Care, Adult, [id number], Preventing Hypoglycemia, Rehydration, Elderly, Dehydration, Elderly, [id number], Blood Glucose Monitoring, Adult, Hypoglycemia, [id number] Additional Instructions: Encourage frequent meals and bedtime snack to prevent drop in blood sugar. Track blood sugars and bring to follow up appointment. Hold Glimepiride If blood sugar increased above 200 may give 1/2 dose of Glimepiride. Forms: Precautions for COVID19, [facility], Patient Portal, Social Distancing Print Language: ICELANDIC
== END 2022-01-06 14:20 | disposition home health service (06) ==
LOC: ER 09:33 → ICU 09:33
PROVIDERS: ADMIT Internal Medicine; ATTEND Internal Medicine
DX: C50.919 Malignant neoplasm of unspecified site of unspecified female breast; R53.1 Weakness; E11.649 Type 2 diabetes mellitus with hypoglycemia without coma; C79.9 Secondary malignant neoplasm of unspecified site; I95.89 Other hypotension; R42 Dizziness and giddiness; R26.89 Other abnormalities of gait and mobility; E86.0 Dehydration; M54.50 Low back pain, unspecified; T68.XXXA Hypothermia, initial encounter; Z20.822 Contact with and (suspected) exposure to COVID-19; Z92.21 Personal history of antineoplastic chemotherapy

== ENCOUNTER 2022-01-29 14:46 | Inpatient (IN) ==
[2022-01-29] MEDS ORDERED: NS 1,000 ML IV 1,000 ML IV ONE (15:04)
--- NOTE | 2022-01-29 15:19 | DR.AMS ---
HPI Time Seen Time Seen by Provider: 01/29/22 15:02 HPI Comment HPI Comment: A 76 y/o female presenting via EMS with her spouse stating he has noted increasing weakness, confusion and diarrhea since yesterday. She has a hx. breast cancer with mets. to the bone. Also, she has become more dyspneic with exertion. She has had her Chemo/ tabs stopped over a month ago due to skin lesion/ecchymosis. Source History Provided: Significant Other and EMS Mode of Arrival Mode of Arrival: EMS Timing Came On: Gradually Symptoms: Worsening Onset of Symptoms Start Date: 01/28/22 Duration Duration: Since Onset Duration: Days Quality Quality: Decreased Alertness Associated Signs and Symptoms Associated Signs and Symptoms: Confusion, Decreased LOC, Change in Memory and Decreased Oral Intake PMH PMH Past Medical History: Diabetes, GERD, Hypertension and Hypothyroidism Past Surgical History: Yes Surgical History: Mastectomy Family History Family Medical History: Diabetes Mellitus, Cancer, [place] and Hypertension Social History Do you use any recreational Drugs:: No ROS Review of Systems Constitutional: No Symptoms Reported Eyes: No Symptoms Reported ENTM: No Symptoms Reported Respiratoy: No Symptoms Reported Cardiovascular: No Symptoms Reported Gastrointestinal/Abdominal: No Symptoms Reported Genitourinary: No Symptoms Reported Neurological: Weakness Musculoskeletal: No Symptoms Reported Integumentary: Lesions Hematologic/Lymphatic: No Symptoms Reported Endocrine: No Symptoms Reported Psychiatric: No Symptoms Reported PE Vitals Vital Signs: Temp Pulse Resp BP BP BP BP 01/29/22 18:46 101/58 01/29/22 18:45 91 H 31 H 01/29/22 18:30 80 17 01/29/22 18:15 83 20 01/29/22 18:00 90 22 01/29/22 17:31 130/60 01/29/22 17:30 93 H 30 H 01/29/22 17:15 91 H 22 01/29/22 17:14 88 18 115/67 01/29/22 17:00 79 19 01/29/22 16:45 84 18 01/29/22 16:30 86 17 01/29/22 16:15 78 29 H 01/29/22 16:00 82 18 01/29/22 15:45 86 20 01/29/22 15:15 91 H 52 H 01/29/22 14:55 97.2 F L 82 18 144/88 01/06/22 12:08 131/74 06/06/21 18:47 103/56 06/06/21 17:11 96/53 10/14/20 20:00 135/60 BP BP Pulse Ox 01/29/22 18:46 01/29/22 18:45 94 L 01/29/22 18:30 98 01/29/22 18:15 99 01/29/22 18:00 98 01/29/22 17:31 01/29/22 17:30 98 01/29/22 17:15 96 01/29/22 17:14 98 01/29/22 17:00 97 01/29/22 16:45 98 01/29/22 16:30 98 01/29/22 16:15 96 01/29/22 16:00 96 01/29/22 15:45 96 01/29/22 15:15 100 01/29/22 14:55 96 01/06/22 12:08 06/06/21 18:47 06/06/21 17:11 104/53 111/57 10/14/20 20:00 General Limitations: Altered Mental Status General Appearance: Alert, In No Apparent Distress and Lethargic Head Head Exam: Normal Inspection, Atraumatic and Normocephalic Eyes Eye exam: Normal Appearance and PERRL ENT ENT Exam: Normal Exam, Normal Oropharynx, Normal External Ear Exam and Mucous Membranes Moist Neck Neck Exam: Normal Inspection, Full ROM and Trachea Midline Chest Chest Inspection: Normal Inspection and Symmetric Chest Wall Rise Respiratory Respiratory Exam: Normal Lung Sounds Bilat Cardiovascular Cardiovascular Exam: Regular Rate, Normal Rhythm, Normal Heart Sounds, +S1 and +S2 Abdominal Exam Abdominal Exam: Normal Inspection, Normal Bowel Sounds and Soft Extremities Extremities Exam: Normal Inspection Back Back Exam: Normal Inspection Neurological Patient Oriented To: negative Person, Place and Time Speech: negative Fluid Speech, Receptive Aphasia, Expressive Aphasia, Total Aphasia, Anomia and Other Skin Skin Exam: Intact COURSE Treatment Treatment: Name: Kylee ACOSTAct#: [id number]: [id number] : 1945Sex: FLocation: ER Order Number(s): [id number](s):CHEST, 1 VIEW Ordering Physician: BUD RUIZ Primary Care: Randal Flores M.D. Service Date: 01/29/22 Service Time: 1504 HISTORY AMS HX BREAST CANCER STUDY CHEST, 1 VIEW COMPARISON 06/06/2021. FINDINGS The trachea is midline. The cardiac silhouette is enlarged but stable. The aorta is tortuous. There is a right subclavian shiva catheter in good position. The lungs are clear without focal infiltrate or effusion. The bony thorax is unremarkable. IMPRESSION No acute cardiopulmonary findings . Electronically signed by: Toi Snider (January 29, 2022 15:52:28) Report Electronically signed: 01/29/22 [id number] CC: Bud Ruiz Reevaluation 1st: Unchanged Education/Counseling Education/Counseling: Family, Education and Counseling Educated On: Treatment, Diagnosis, Prognosis and Needs for Follow Up ROR Labs Reviewed Result Diagrams: 01/29/22 15:23 01/29/22 15: Laboratory: 01/29/22 17:25 Stool - Final WBC 15.5 X10^3/uL (3.6-10.0) H 01/29/22 15: RBC 3.04 X10^6/uL (3.5-5.4) L 01/29/22 15:23 Hgb 11.0 g/dL (12.0-16.0) L 01/29/22 15: Hct 31.8 % (36.0-47.0) L 01/29/22 15: MCV 104.9 fL (80.0-100.0) H 01/29/22 15:23 MCH 36.2 pg (27.0-34.0) H 01/29/22 15: MCHC 34.6 g/dL (33.0-35.0) 01/29/22 15:23 RDW 14.9 % (11.6-16.5) 01/29/22 15: Plt Count 368 X10^3/uL (150.0-450.0) 01/29/22 15: Plt Count Comment Adequate (ADEQUATE) 01/29/22 15: MPV 7.8 fL (7.4-11.0) 01/29/22 15: Neut % (Auto) 84.5 % (42.0-75.0) H 01/29/22 15: Lymph % (Auto) 9.9 % (21.0-51.0) L 01/29/22 15:23 Guthrie % (Auto) 5.0 % (0.0-13.0) 01/29/22 15:23 Eos % (Auto) 0.2 % (0.9-2.9) L 01/29/22 15:23 Baso % (Auto) 0.4 % (0.2-1.0) 01/29/22 15:23 Neut # (Auto) 13.1 x10^3/uL (2.2-4.8) H 01/29/22 15:23 Lymph # (Auto) 1.5 X10^3/uL (1.3-2.9) 01/29/22 15:23 Guthrie # (Auto) 0.8 x10^3/uL (0.3-0.8) 01/29/22 15:23 Eos # (Auto) 0.0 x10^3/uL (0.0-0.2) 01/29/22 15: Baso # (Auto) 0.1 X10^3/uL (0.0-0.1) 01/29/22 15: Absolute Nucleated RBC 0.6 /100WBC 01/29/22 15:23 Total Counted 100 01/29/22 15:23 Neutrophils % (Manual) 88 % (39-76) H 01/29/22 15: Lymphocytes % (Manual) 11 % (13-43) L 01/29/22 15: Eosinophils % (Manual) 1 % (0-6) 01/29/22 15: Plt Morphology Comment Normal (NORMAL) 01/29/22 15: RBC Morphology Normal (NORMAL) 01/29/22 15:23 Sodium 132 mmol/L (136-145) L 01/29/22 15:23 Corrected Sodium 133 mmol/L (136-145) L 01/29/22 15:23 Potassium 4.6 mmol/L (3.5-5.1) 01/29/22 15: Chloride 97 mmol/L (98-107) L 01/29/22 15:23 Carbon Dioxide 24.5 mmol/L (21-32) 01/29/22 15:23 BUN 63 mg/dL (7-18) H 01/29/22 15:23 Creatinine 2.83 mg/dL (0.55-1.02) H 01/29/22 15:23 Est GFR (MDRD) Af Amer 21 (>60) L 01/29/22 15:23 Est GFR (MDRD) Non-Af 17 (>60) L 01/29/22 15:23 Glucose 130 mg/dL (65-99) H 01/29/22 15:23 Calcium 14.5 mg/dL (8.5-10.1) H* 01/29/22 15:23 Corrected Calcium 15.3 mg/dL (8.5-10.1) H 01/29/22 15:23 Total Bilirubin 0.40 mg/dL (0.2-1.0) 01/29/22 15:23 AST 157 Units/L (15-37) H 01/29/22 15:23 ALT 40 Units/L (12-78) 01/29/22 15:23 Alkaline Phosphatase 352 Units/L (46-116) H 01/29/22 15:23 Total Protein 7.0 g/dL (6.4-8.2) 01/29/22 15:23 Albumin 3.0 g/dL (3.4-5.0) L 01/29/22 15:23 Globulin 4.0 g/dL (2.5-4.5) 01/29/22 15:23 Albumin/Globulin Ratio 0.8 Ratio (1.1-2.1) L 01/29/22 15:23 Stool Description Solid brown 01/29/22 17:25 Cryptosporid parvum Ag Negative (NEGATIVE) 01/29/22 17:25 Giardia lamblia Ag Negative (NEGATIVE) 01/29/22 17:25 Opioid Opioid Risk Tool Age (Marvin box if 16-45): No History of Preadolescent Sexual Abuse: No Total: 0 Total Score Risk Category: Low Risk Copyright: Alexander HORN predicting aberrant behaviors Diagnosis Discharge Problem: Acute kidney injury, Hypercalcemia, Elevated LFTs Altered mental status Qualifiers: Altered mental status type: somnolence Qualified Code(s): R40.0 - Somnolence Breast cancer metastasized to bone Qualifiers: Laterality: unspecified laterality Qualified Code(s): C50.919 - Malignant neoplasm of unspecified site of unspecified female breast Instructions Forms: Precautions for COVID19 [facility] Patient [facility] Social Distancing ADDITIONAL NOTES Additional Notes Additional Notes: Name: Mallorie ACOSTA#: [id number]: [id number] : 1945Sex: FLocation: ER Order Number(s): [id number](s):BRAIN W/O CON Ordering Physician: BUD RUIZ Primary Care: Randal Flores M.D. Service Date: 01/29/22 Service Time: 1504 HISTORY AMS, HX BREAST CANCER STUDY BRAIN W/O CON COMPARISON January 21, 2022 TECHNIQUE Axial non-contrast images of the head were obtained with coronal and sagittal reformats provided. Radiation dose: 1323.70 mGy-cm total DLP FINDINGS No abnormal areas of acute attenuation in the brain parenchyma. Parada-white differentiation remains intact. No intracranial, extra-axial, fluid collection. No hemorrhage. Periventricular chronic microvascular disease. No mass, mass effect or midline shift. Age related brain parenchymal global atrophy. No ventriculomegaly. No acute fracture. Sinuses are well aerated. Small amount of nonspecific fluid in the inferior aspect of the mastoid air cells. Globes and intra-orbital contents are unremarkable. IMPRESSION No acute intracranial abnormality identified. Electronically signed by: Pancho Archer (January 29, 2022 15:49:39) Report Electronically signed: 01/29/22 1549 CC: Bud Ruiz
[2022-01-29 15:31] LABS: BASOPHILS # (AUTO) 0.1 X10^3/uL (0.0-0.1); BASOPHILS % (AUTO) 0.4 % (0.2-1.0); EOSINOPHILS % (AUTO) 0.2 % (0.9-2.9); HEMATOCRIT 31.8 % (36.0-47.0); LYMPHOCYTES # (AUTO) 1.5 X10^3/uL (1.3-2.9); LYMPHOCYTES % (AUTO) 9.9 % (21.0-51.0); MEAN CORPUSCULAR HEMOGLOBIN 36.2 pg (27.0-34.0); MEAN CORPUSCULAR HGB CONC 34.6 g/dL (33.0-35.0); MEAN CORPUSCULAR VOLUME 104.9 fL (80.0-100.0); MEAN PLATELET VOLUME 7.8 fL (7.4-11.0); MONOCYTES # (AUTO) 0.8 x10^3/uL (0.3-0.8); NEUTROPHILS # (AUTO) 13.1 x10^3/uL (2.2-4.8); NEUTROPHILS % (AUTO) 84.5 % (42.0-75.0); RED BLOOD COUNT 3.04 X10^6/uL (3.5-5.4); RED CELL DISTRIBUTION WIDTH 14.9 % (11.6-16.5); WHITE BLOOD COUNT 15.5 X10^3/uL (3.6-10.0)
[2022-01-29 15:45] LABS: PLATELET MORPHOLOGY COMMENT NORMAL (NORMAL)
[2022-01-29 15:47] LABS: CARBON DIOXIDE 24.5 mmol/L (21-32); COR CA(FOR HYPOALB) 15.3 mg/dL (8.5-10.1); CREATININE 2.83 mg/dL (0.55-1.02)
--- NOTE | 2022-01-29 15:49 | CT ---
HISTORYAMS, HX BREAST CANCERSTUDYBRAIN W/O CONCOMPARISONMay 2021TECHNIQUEAxial non-contrast images of the head were obtained with coronal and sagittal reformats provided.Radiation dose: 1323.70 mGy-cm total DLPFINDINGSNo abnormal areas of acute attenuation in the brain parenchyma.Parada-white differentiation remains intact.No intracranial, extra-axial, fluid collection.No hemorrhage.Periventricular chronic microvascular disease.No mass, mass effect or midline shift.Age related brain parenchymal global atrophy.No ventriculomegaly.No acute fracture.Sinuses are well aerated.Small amount of nonspecific fluid in the inferior aspect of the mastoid air cells.Globes and intra-orbital contents are unremarkable.IMPRESSIONNo acute intracranial abnormality identified.Electronically signed by: Pancho Archer (January 29, 2022 15:49:39)
--- NOTE | 2022-01-29 15:53 | RAD ---
HISTORYAMS HX BREAST CANCERSTUDYCHEST, 1 [id number]/30/2021.FINDINGSThe trachea is midline. The cardiac silhouette is enlarged but stable. The aorta is tortuous. There is a right subclavian shiva catheter in good position. The lungs are clear without focal infiltrate or effusion. The bony thorax is unremarkable.IMPRESSIONNo acute cardiopulmonary findings .Electronically signed by: Toi Snider (January 29, 2022 15:52:28)
[2022-01-29 15:55] LABS: CALCIUM 14.5 mg/dL (8.5-10.1)
[2022-01-29 18:08] LABS: CRYPTOSPORIDIUM PARVUM ANTIGEN NEGATIVE (NEGATIVE); GIARDIA LAMBLIA ANTIGEN NEGATIVE (NEGATIVE)
[2022-01-29 21:04] LABS: BILIRUBIN,URINE NEGATIVE (NEGATIVE); BLOOD/HEMOGLOBIN,URINE 1+ (NEGATIVE); GLUCOSE, URINE NEGATIVE (NEGATIVE); KETONES,URINE NEGATIVE (NEGATIVE); LEUKOCYTE ESTERASE ,URINE 3+ (NEGATIVE); NITRITES,URINE NEGATIVE (NEGATIVE); PROTEIN,URINE 2+ (NEGATIVE); UROBILINOGEN,URINE NORMAL (NORMAL)
[2022-01-29 21:18] LABS: APPEARANCE,URINE SLIGHTLY HAZY (CLEAR); COLOR,URINE PALE YELLOW (YELLOW)
[2022-01-29 21:20] LABS: BACTERIA,URINE TRACE /HPF (NEGATIVE); HYALINE CASTS, URINE FEW /LPF (NEGATIVE); RBC,URINE 0-2 /HPF (0-3); SQUAMOUS EPITHELIAL CELL,UR RARE /HPF (NEGATIVE)
[2022-01-29 21:21] LABS: OTHER CASTS, URINE RARE /LPF (NEGATIVE)
[2022-01-29] MEDS: NS 1,000 ML IV 1,000 ML IV SCH (21:46)
[2022-01-29] MEDS: XALATAN OP SCH (22:00)
[2022-01-29] MEDS: BRIMONIDINE 0.1% OP SCH (23:08)
[2022-01-29] MEDS: LIFITEGRAST 5% OP SCH (23:09)
[2022-01-30] MEDS: NS 1,000 ML IV 1,000 ML IV SCH ×5 (01:00→18:17)
[2022-01-30 04:49] LABS: BASOPHILS # (AUTO) 0.1 X10^3/uL (0.0-0.1); BASOPHILS % (AUTO) 0.3 % (0.2-1.0); HEMATOCRIT 27.7 % (36.0-47.0); HEMOGLOBIN 9.5 g/dL (12.0-16.0); LYMPHOCYTES % (AUTO) 4.8 % (21.0-51.0); MEAN CORPUSCULAR HEMOGLOBIN 35.9 pg (27.0-34.0); MEAN CORPUSCULAR HGB CONC 34.5 g/dL (33.0-35.0); MEAN CORPUSCULAR VOLUME 104.2 fL (80.0-100.0); MEAN PLATELET VOLUME 8.2 fL (7.4-11.0); MONOCYTES # (AUTO) 0.7 x10^3/uL (0.3-0.8); MONOCYTES % (AUTO) 3.6 % (0.0-13.0); NEUTROPHILS # (AUTO) 18.8 x10^3/uL (2.2-4.8); NEUTROPHILS % (AUTO) 91.3 % (42.0-75.0); RED BLOOD COUNT 2.66 X10^6/uL (3.5-5.4); RED CELL DISTRIBUTION WIDTH 15.2 % (11.6-16.5); WHITE BLOOD COUNT 20.7 X10^3/uL (3.6-10.0)
[2022-01-30 05:02] LABS: ALANINE AMINOTRANSFERASE 31 Units/L (12-78); ALBUMIN 2.5 g/dL (3.4-5.0); ALKALINE PHOSPHATASE 316 Units/L (46-116); ASPARTATE AMINO TRANSFERASE 134 Units/L (15-37); BLOOD UREA NITROGEN 56 mg/dL (7-18); CHLORIDE 103 mmol/L (98-107); COR CA(FOR HYPOALB) 14.7 mg/dL (8.5-10.1); CREATININE 2.34 mg/dL (0.55-1.02); SODIUM 135 mmol/L (136-145); TOTAL PROTEIN 6.1 g/dL (6.4-8.2); eGFR NON BLACK RACES 21 (>60)
[2022-01-30 05:15] LABS: CALCIUM 13.5 mg/dL (8.5-10.1)
[2022-01-30 05:17] LABS: BAND NEUTROPHILS % 1 % (0-10)
[2022-01-30 05:18] LABS: PLATELET MORPHOLOGY COMMENT NORMAL (NORMAL)
[2022-01-30] MEDS ORDERED: LASIX IVP SCH (09:00)
[2022-01-30] MEDS ORDERED: OFIRMEV IV 1000 MG VIAL 1,000 MG/100 ML VIAL IV PRN (09:09)
[2022-01-30] MEDS ORDERED: ZOFRAN INJ 4 MG VIAL IVP PRN (09:09)
[2022-01-30] MEDS: ROCEPHIN 1 GRAM IV PREMIX 1 G/50 ML IV.SOLN. IV SCH (09:39)
[2022-01-30] MEDS: LOVENOX INJ 30 MG SYR SC SCH (09:40)
[2022-01-30 09:43] VITALS: BMI 23.1
[2022-01-30 10:03] LABS: ALANINE AMINOTRANSFERASE 25 Units/L (12-78); ALBUMIN 2.3 g/dL (3.4-5.0); ALKALINE PHOSPHATASE 310 Units/L (46-116); ASPARTATE AMINO TRANSFERASE 120 Units/L (15-37); BLOOD UREA NITROGEN 56 mg/dL (7-18); CARBON DIOXIDE 23.4 mmol/L (21-32); CHLORIDE 105 mmol/L (98-107); CKMB % 0.7 % (<4); COR CA(FOR HYPOALB) 14.4 mg/dL (8.5-10.1); CREATINE KINASE 147 Units/L (26-192); CREATINE KINASE MB < 1.0 ng/mL (0-4.0); CREATININE 2.34 mg/dL (0.55-1.02); SODIUM 136 mmol/L (136-145); TOTAL PROTEIN 5.7 g/dL (6.4-8.2); eGFR NON BLACK RACES 21 (>60)
[2022-01-30] MEDS: LIFITEGRAST 5% OP SCH ×2 (11:25→21:13)
[2022-01-30] MEDS: BRIMONIDINE 0.1% OP SCH ×2 (11:25→20:43)
--- NOTE | 2022-01-30 17:29 | DR.H&P ---
H&P - History & Physical for Day of: H&P Date: 01/29/22 - Chief Complaint Chief Complaint: AMS, LOW BLOOD PRESSURE, SOB - History of Present Illness History of Present Illness: PT IS 76 WF ER ADMISSION AFTER PRESENTING WITH EMS. HOME HEALTH NURSE REPORTED PT HAD AMS, SEVERE DIARRHEA AND MORE SOB SINCE YESTERDAY. PT HAS METASTATIC BREAST CANCER WITH BONE DISEASE. PT HAS GRADUALLY HAD WORSENED CONFUSION AND DECREASED RESPONSIVENESS OVER THE PAST MONTH WITH RECENT FALLS. PT HAS PMH OF HTN, DM, IBS-D, GLAUCOMA, THYROID DISEASE AND PATHOLOGICAL CSPINE FRACTURE. PT ADMITTED FOR TREATMENT AND EVALUATION OF ACUTE ILLNESS. - Past Medical History Past Medical History: Hypertension, Diabetes, Hypothyroidism, GERD Additional Medical History: Breast cancer, pots - Past Surgical History Surgical History: Mastectomy, Ortho Surgery, Other - Family History Family Medical History: Diabetes Mellitus, Cancer, [place], Hypertension - Social History Does patient currently use any type of tobacco product: No Have you used tobacco products in the last 12 months: No Type of Tobacco Use: None Does any household member use tobacco: No Alcohol Use: None Drug Use: None Risks, benefits, and alternatives of opioids discussed: Yes Prescription drug monitoring program results: PDMP reviewed and no concerns identified - Medications Home Medications: codeine Allergy (Verified 01/21/22 13:28) latex Allergy (Verified 01/21/22 13:28) CONTINUE taking the following medications clonazepam 1 mg PO DAILY PRN 01/29/22 [History] ergocalciferol (vitamin D2) [Vitamin D2] 1,250 mcg PO DAILY 01/29/22 [History] levothyroxine 75 mcg PO DAILY 01/29/22 [History] - Review of Systems Constitutional: Weakness, Malaise Eyes: No Symptoms Reported ENT: No Symptoms Reported Respiratory: Shortness of Breath, SOB with Excertion Cardiovascular: Palpitations Gastrointestinal: Diarrhea Genitourinary: Frequency Musculoskeletal: Back Pain, Neck Pain Skin: Ecchymosis Neurological: Weakness, Numbness, Confusion - Physical Exam Vital Signs: Temperature 97.7 F Pulse Rate 101 Respiratory Rate 17 Blood Pressure [Left Arm] 135/60 Blood Pressure [Right Arm] 103/56 Blood Pressure [Standing] 111/57 Blood Pressure [Sitting] 104/53 Blood Pressure [Lying] 96/53 Blood Pressure 155/72 O2 Sat by Pulse Oximetry 99 Oriented: Person (OPENS EYE TO VOICE, NO VERBAL RESPONSE) Ear: Normal Nose: Normal Throat: Dry Respiratory: Diminished Throughout Cardiovascular: Tachycardia : Other ([place] CATH PLACED) Auscultation: Bowel Sounds: Increased Tenderness: Other (NO VERBAL RESPONSE TO PALPATION, NO WITHDRAWAL TO PAINFUL STIMULI) Skin: Wound (SACRAL PRESSURE STAGE I), Bruising, Ecchymosis Speech Pattern: Aphasic - Assessment/Plan (1) Altered mental status Status: Acute Plan: ADMIT, BC ON ADMISSION. ICU, EKG MONITORING. [place] CATH WITH STRICT I&OS, IV HYDRATION. VERIFY HOME MEDICATION, STOOL STUDY, CXR ON ADMISSION. CT HEAD ON ADMISSION, BS MONITORING. PAIN CONTROL (2) Diarrhea Status: Acute (3) Dehydration Status: Acute (4) Hypotension Qualifiers: Hypotension type: unspecified hypotension type Qualified Code(s): I95.9 - Hypotension, unspecified Status: Acute (5) Breast cancer metastasized to bone Qualifiers: Laterality: unspecified laterality Qualified Code(s): C50.919 - Malignant neoplasm of unspecified site of unspecified female breast; C79.51 - Secondary malignant neoplasm of bone Status: Acute (6) GERD (gastroesophageal reflux disease) Qualifiers: Esophagitis presence: without esophagitis Qualified Code(s): K21.9 - Gastro-esophageal reflux disease without esophagitis Status: Chronic - Allergies Allergies/Adverse Reactions: Allergies Allergy/AdvReac Type Severity Reaction Status Date / Time codeine Allergy Verified 01/21/22 13:28 latex Allergy Verified 01/21/22 13:28
[2022-01-30] MEDS: XALATAN OP SCH (20:43)
[2022-01-31 04:06] LABS: BASOPHILS # (AUTO) 0.1 X10^3/uL (0.0-0.1); BASOPHILS % (AUTO) 0.4 % (0.2-1.0); EOSINOPHILS % (AUTO) 0.1 % (0.9-2.9); HEMATOCRIT 26.7 % (36.0-47.0); HEMOGLOBIN 9.1 g/dL (12.0-16.0); LYMPHOCYTES # (AUTO) 0.9 X10^3/uL (1.3-2.9); LYMPHOCYTES % (AUTO) 4.3 % (21.0-51.0); MEAN CORPUSCULAR HEMOGLOBIN 35.9 pg (27.0-34.0); MEAN CORPUSCULAR VOLUME 105.4 fL (80.0-100.0); MEAN PLATELET VOLUME 8.5 fL (7.4-11.0); MONOCYTES # (AUTO) 0.8 x10^3/uL (0.3-0.8); MONOCYTES % (AUTO) 3.9 % (0.0-13.0); NEUTROPHILS # (AUTO) 19.2 x10^3/uL (2.2-4.8); NEUTROPHILS % (AUTO) 91.3 % (42.0-75.0); RED BLOOD COUNT 2.54 X10^6/uL (3.5-5.4); RED CELL DISTRIBUTION WIDTH 14.8 % (11.6-16.5)
[2022-01-31 04:15] LABS: ALBUMIN 2.3 g/dL (3.4-5.0); CARBON DIOXIDE 20.9 mmol/L (21-32); COR CA(FOR HYPOALB) 14.4 mg/dL (8.5-10.1); CREATININE 2.19 mg/dL (0.55-1.02)
[2022-01-31 04:45] LABS: PLATELET MORPHOLOGY COMMENT NORMAL (NORMAL)
[2022-01-31 04:46] LABS: BAND NEUTROPHILS % 4 % (0-10); HOWELL-JOLLY BODIES PRESENT; METAMYELOCYTES % 1
[2022-01-31] MEDS: NS 1,000 ML IV 1,000 ML IV SCH ×2 (05:18→12:06)
[2022-01-31] MEDS ORDERED: MORPHINE SULFATE INJ 2 MG INJ IVP PRN ×2 (08:43→12:34)
[2022-01-31] MEDS: LIFITEGRAST 5% OP SCH (09:02)
[2022-01-31] MEDS: BRIMONIDINE 0.1% OP SCH (09:02)
[2022-01-31] MEDS: ROCEPHIN 1 GRAM IV PREMIX 1 G/50 ML IV.SOLN. IV SCH (09:02)
[2022-01-31] MEDS: LOVENOX INJ 30 MG SYR SC SCH (09:06)
[2022-01-31 12:06] VITALS: BP 135/65
[2022-01-31] MEDS ORDERED: LEVSIN SYRUP PO PRN (12:34)
[2022-01-31] MEDS ORDERED: ATIVAN INJ 2 MG VIAL IVP PRN (12:34)
[2022-01-31] MEDS ORDERED: NS 1,000 ML IV 1,000 ML IV SCH (13:00)
== END 2022-01-31 12:14 | disposition hospice, inpatient (51) | DRG 683 ==
LOC: ER 14:46 → ICU 20:45
PROVIDERS: ADMIT Family Medicine; ATTEND Internal Medicine
DX: R53.1 Weakness; E83.52 Hypercalcemia; E11.65 Type 2 diabetes mellitus with hyperglycemia; C79.51 Secondary malignant neoplasm of bone; N17.8 Other acute kidney failure; R06.02 Shortness of breath; B95.2 Enterococcus as the cause of diseases classified elsewhere; R41.82 Altered mental status, unspecified; R19.7 Diarrhea, unspecified; I95.89 Other hypotension; C50.919 Malignant neoplasm of unspecified site of unspecified female breast; R94.5 Abnormal results of liver function studies; I10 Essential (primary) hypertension; R26.89 Other abnormalities of gait and mobility; K21.9 Gastro-esophageal reflux disease without esophagitis; E03.8 Other specified hypothyroidism; Z66 Do not resuscitate; Z20.822 Contact with and (suspected) exposure to COVID-19

== ENCOUNTER 2022-01-31 12:15 | Inpatient (IN) ==
[2022-01-31] MEDS ORDERED: LEVSIN ORAL DROPS PO PRN (14:11)
[2022-01-31] MEDS ORDERED: ATIVAN INJ 2 MG VIAL IVP PRN (14:11)
[2022-01-31] MEDS: NS 1,000 ML IV 1,000 ML IV SCH (14:22)
[2022-01-31 14:38] VITALS: BMI 22.9
[2022-01-31] MEDS: MORPHINE SULFATE INJ 2 MG INJ IVP PRN ×3 (15:40→21:12)
[2022-02-01] MEDS: NS 1,000 ML IV 1,000 ML IV SCH (05:51)
--- NOTE | 2022-02-01 10:44 | PCM.PROG ---
Progress Note Progress Note for Day of Date of Exam: 02/01/22 Subjective Subjective: Patient seen at bedside, no events overnight. Patient is currently inpatient hospice. She has a hx of breast cancer with mets, dehydration, GENOVEVA and hypercalcemia. Family has decided to do comfort measures with inpatient hospice. She is currently resting with no signs of distress. Her eyes are closed. Son present at bedside, updated on plan and answered questions. Plan: continue comfort measures as per hospice. Continue pain control with morphine and ativan for anxiety. All maintenance medications and labs discontinued at this time for comfort care. Past Medical Family Social History Past Med/Fam/Surg Hx: No changes since H&P Allergies: Allergies codeine Allergy (Verified 01/21/22 13:28) latex Allergy (Verified 01/21/22 13:28) Review of Systems ROS: No change since H&P Vital Signs and I&O's Vital Signs: Temperature 98.3 F Pulse Rate 107 Respiratory Rate 12 Blood Pressure [Left Arm] 135/60 Blood Pressure [Right Arm] 103/56 Blood Pressure [Standing] 111/57 Blood Pressure [Sitting] 104/53 Blood Pressure [Lying] 96/53 Blood Pressure 162/77 O2 Sat by Pulse Oximetry 97 Intake and Output: Intake & Output 01/29/22 01/30/22 01/31/22 02/01/22 23:59 23:59 23:59 23:59 Intake Total 994 / 994 240 / 240 Output Total 950 / 950 400 / 400 Balance 44 / 44 -160 / -160 Physical Exam Oriented: Unable to test Ear: Normal Nose: Normal Throat: Dry Respiratory: Generalized and Diminished Cardiovascular: Normal Auscultation: Bowel Sounds: Normal Tenderness: Normal Skin: Petechial Psychiatric: Normal Mood Description: Calm Speech Pattern: Aphasic Plan (1) Hospice care: Status: Acute (2) Comfort measures only status: Status: Acute (3) Acute dehydration: Status: Acute (4) Hypotension: Status: Acute Qualifiers: Hypotension type: unspecified hypotension type Qualified Code(s): I95.9 - Hypotension, unspecified (5) Acute kidney injury: Status: Acute (6) Breast cancer metastasized to bone: Status: Acute Qualifiers: Laterality: unspecified laterality Qualified Code(s): C50.919 - Malignant neoplasm of unspecified site of unspecified female breast; C79.51 - Secondary malignant neoplasm of bone (7) Hypercalcemia: Status: Acute (8) Altered mental status: Status: Acute Qualifiers: Altered mental status type: somnolence Qualified Code(s): R40.0 - Somnolence
[2022-02-02] MEDS: NS 1,000 ML IV 1,000 ML IV SCH ×2 (10:53→14:13)
--- NOTE | 2022-02-02 11:06 | PCM.PROG ---
Progress Note Progress Note for Day of Date of Exam: 02/02/22 Subjective Subjective: Patient seen at bedside, no events overnight. Patient is currently inpatient hospice. She has a hx of breast cancer with mets, dehydration, GENOVEVA and hypercalcemia. Family has decided to do comfort measures with inpatient hospice. She is currently resting with no signs of distress. Her eyes are closed. Family present at bedside, updated on plan and answered questions. Plan: continue comfort measures as per hospice. Continue pain control with morphine and ativan for anxiety. All maintenance medications and labs discontinued at this time for comfort care. Past Medical Family Social History Past Med/Fam/Surg Hx: No changes since H&P Allergies: Allergies codeine Allergy (Verified 01/21/22 13:28) latex Allergy (Verified 01/21/22 13:28) Review of Systems ROS: No change since H&P Vital Signs and I&O's Vital Signs: Temperature 97.5 F Pulse Rate 125 Respiratory Rate 24 Blood Pressure [Left Arm] 135/60 Blood Pressure [Right Arm] 103/56 Blood Pressure [Standing] 111/57 Blood Pressure [Sitting] 104/53 Blood Pressure [Lying] 96/53 Blood Pressure 168/94 O2 Sat by Pulse Oximetry 97 Intake and Output: Intake & Output 01/30/22 01/31/22 02/01/22 02/02/22 23:59 23:59 23:59 23:59 Intake Total 994 / 994 805 / 805 268 / 268 Output Total 950 / 950 1275 / 1275 125 / 125 Balance 44 / 44 -470 / -470 143 / 143 Physical Exam Oriented: Unable to test Ear: Normal Nose: Normal Throat: Dry Respiratory: Generalized and Diminished Cardiovascular: Normal Auscultation: Bowel Sounds: Normal Tenderness: Normal Skin: Petechial Psychiatric: Normal Mood Description: Calm Speech Pattern: Aphasic Plan (1) Hospice care: Status: Acute (2) Comfort measures only status: Status: Acute (3) Acute dehydration: Status: Acute (4) Hypotension: Status: Acute Qualifiers: Hypotension type: unspecified hypotension type Qualified Code(s): I95.9 - Hypotension, unspecified (5) Acute kidney injury: Status: Acute (6) Breast cancer metastasized to bone: Status: Acute Qualifiers: Laterality: unspecified laterality Qualified Code(s): C50.919 - Malignant neoplasm of unspecified site of unspecified female breast; C79.51 - Secondary malignant neoplasm of bone (7) Hypercalcemia: Status: Acute (8) Altered mental status: Status: Acute Qualifiers: Altered mental status type: somnolence Qualified Code(s): R40.0 - Somnolence
[2022-02-03] MEDS: NS 1,000 ML IV 1,000 ML IV SCH ×3 (06:43→20:22)
[2022-02-03] MEDS: MORPHINE SULFATE INJ 2 MG INJ IVP PRN ×6 (10:50→22:25)
--- NOTE | 2022-02-03 12:04 | PCM.PROG ---
Progress Note Progress Note for Day of Date of Exam: 02/03/22 Subjective Subjective: Patient seen at bedside, no events overnight. Patient is currently inpatient hospice. She has a hx of breast cancer with mets, dehydration, GENOVEVA and hypercalcemia. She is currently resting with no signs of distress. Her eyes are closed. Family present at bedside, updated on plan and answered questions. Plan: continue comfort measures as per hospice. Continue pain control with morphine and ativan for anxiety. All maintenance medications and labs discontinued at this time for comfort care. Past Medical Family Social History Past Med/Fam/Surg Hx: No changes since H&P Allergies: Allergies codeine Allergy (Verified 01/21/22 13:28) latex Allergy (Verified 01/21/22 13:28) Review of Systems ROS: No change since H&P Vital Signs and I&O's Vital Signs: Temperature 98.1 F Pulse Rate 134 Respiratory Rate 21 Blood Pressure [Left Arm] 135/60 Blood Pressure [Right Arm] 103/56 Blood Pressure [Standing] 111/57 Blood Pressure [Sitting] 104/53 Blood Pressure [Lying] 96/53 Blood Pressure 119/82 O2 Sat by Pulse Oximetry 97 Intake and Output: Intake & Output 01/31/22 02/01/22 02/02/22 02/03/22 23:59 23:59 23:59 23:59 Intake Total 994 / 994 805 / 805 748 / 748 231 / 231 Output Total 950 / 950 1275 / 1275 850 / 850 200 / 200 Balance 44 / 44 -470 / -470 -102 / -102 / 31 Physical Exam Oriented: Unable to test Ear: Normal Nose: Normal Throat: Dry Respiratory: Generalized and Diminished Cardiovascular: Tachycardia Auscultation: Bowel Sounds: Normal Tenderness: Normal Skin: Petechial and Bruising Psychiatric: Normal Mood Description: Calm Speech Pattern: Aphasic Plan (1) Hospice care: Status: Acute (2) Comfort measures only status: Status: Acute (3) Acute dehydration: Status: Acute (4) Hypotension: Status: Acute Qualifiers: Hypotension type: unspecified hypotension type Qualified Code(s): I95.9 - Hypotension, unspecified (5) Acute kidney injury: Status: Acute (6) Breast cancer metastasized to bone: Status: Acute Qualifiers: Laterality: unspecified laterality Qualified Code(s): C50.919 - Malignant neoplasm of unspecified site of unspecified female breast; C79.51 - Secondary malignant neoplasm of bone (7) Hypercalcemia: Status: Acute (8) Altered mental status: Status: Acute Qualifiers: Altered mental status type: somnolence Qualified Code(s): R40.0 - Somnolence
[2022-02-03] MEDS ORDERED: VALIUM INJ IVP PRN (13:20)
[2022-02-04] MEDS: NS 1,000 ML IV 1,000 ML IV SCH ×2 (05:01→17:13)
[2022-02-04] MEDS: MORPHINE SULFATE INJ 2 MG INJ IVP PRN ×7 (09:18→23:52)
[2022-02-05 04:01] VITALS: BP 42/25
== END 2022-02-05 05:15 | disposition home or self-care (01) | DRG 682 ==
LOC: ICU 12:15
PROVIDERS: ADMIT Internal Medicine; ATTEND Internal Medicine